=== PATIENT | female | born 1990 | race Caucasian/White ===

== ENCOUNTER 2021-04-10 18:53 | Outpatient (REF) | payer OTHER, SELFPAY | END 2021-04-10 18:54 | disposition home or self-care (01) | LOC: HO.LNP 18:53 | PROVIDERS: Visit Provider Physician Assistant Medical | DX: R30.0 Dysuria (principal) | CPT/HCPCS: 87086 ==

== ENCOUNTER 2021-04-11 13:31 | Outpatient (REF) | payer OTHER, SELFPAY ==
[2021-04-11 16:55] LABS: HCG Quantitative 1210 mIU/mL
== END 2021-04-11 13:32 | disposition home or self-care (01) ==
LOC: HO.HMGCLDS 13:31
PROVIDERS: Visit Provider Physician Assistant Medical
DX: O26.891 Other specified pregnancy related conditions, first trimester (principal); R30.0 Dysuria
CPT/HCPCS: 36415; 84702

== ENCOUNTER 2021-04-27 12:36 | Outpatient (REF) | payer OTHER, SELFPAY | END 2021-04-27 12:37 | disposition home or self-care (01) | LOC: HO.HMGCLDS 12:36 | PROVIDERS: Visit Provider Internal Medicine | DX: N92.0 Excessive and frequent menstruation with regular cycle (principal) | CPT/HCPCS: 36415; 84702 ==

== ENCOUNTER → 2021-05-07 08:45 | Outpatient (BNVA) | payer OTHER, SELFPAY | PROVIDERS: Visit Provider Advanced Practice Midwife | DX: Z32.01 Encounter for pregnancy test, result positive (principal); N92.6 Irregular menstruation, unspecified; R11.0 Nausea; Z3A.08 8 weeks gestation of pregnancy | CPT/HCPCS: 81025 ==

== ENCOUNTER 2021-05-08 14:52 | Outpatient (REF) | payer OTHER, SELFPAY ==
--- NOTE | ~2021-05-08 | US_ITS ---
EXAMINATION: US OBSTETRICAL ULTRASOUND CLINICAL INFORMATION: Irregular menstruation. Check size and dates. COMPARISON: None. LMP: 03/07/2021. Gestational age by maternal dates is 8 weeks 6 days. Estimated date of delivery by maternal dates is 12/12/2021. TECHNIQUE: Transabdominal and transvaginal first trimester OB ultrasound. Transvaginal exam was performed for better visualization of the gestational sac. FINDINGS: There is a single intrauterine gestational sac with visible yolk sac, embryo/fetus, and cardiac activity. There is no significant subchorionic hemorrhage or hematoma. HR: 179 beats per minute. CRL (crown rump length): 2.1 cm (8 weeks 6 days +/- 4 days). SPARKLE (estimated date of delivery): 12/12/2021 +/- 4 days. MATERNAL ADNEXA: The right maternal ovary measures 3.8 x 2.5 x 2 cm. The left maternal ovary measures 2.1 x 1 x 1.5 cm. There is no significant maternal adnexal mass. No maternal pelvic ascites. US/US OB <= 14 weeks fetus IMPRESSION: 1. Single intrauterine gestation with ultrasound gestational age of 8 weeks 6 days +/- 4 days. 2. Estimated date of delivery is 12/12/2021 +/- 4 days. 3. No maternal adnexal mass or pelvic ascites.
== END 2021-05-08 14:53 | disposition home or self-care (01) ==
LOC: HO.US 14:52
PROVIDERS: Visit Provider Advanced Practice Midwife
DX: Z34.91 Encounter for supervision of normal pregnancy, unspecified, first trimester (principal); Z3A.08 8 weeks gestation of pregnancy
CPT/HCPCS: 76801

== ENCOUNTER → 2021-05-30 14:00 | Outpatient (BNVA) | payer OTHER, SELFPAY | PROVIDERS: Visit Provider Advanced Practice Midwife | DX: Z34.01 Encounter for supervision of normal first pregnancy, first trimester (principal); Z3A.12 12 weeks gestation of pregnancy | CPT/HCPCS: 99212 ==

== ENCOUNTER 2021-05-31 08:46 | Outpatient (REF) | payer OTHER, SELFPAY ==
[2021-05-31 11:50] LABS: Hematocrit 36.2 % (37.0-47.0); Hemoglobin 11.5 g/dl (12.0-16.0); Mean Corpuscular HGB Conc 31.8 g/dl (31.0-35.0); Mean Corpuscular Hemoglobin 27.6 pg (27.0-33.0); Mean Platelet Volume 10.7 fL (9.4-12.3); Platelet Count 287 X10*3/uL (160-400); Red Blood Count 4.16 X10*6/uL (4.20-5.50); Red Cell Distribution Width 13.9 % (11.0-16.0); White Blood Count 8.7 X10*3/uL (4.8-10.8)
[2021-05-31 12:15] LABS: Glucose 1 Hour PP 50gm Dose 149 mg/dL (60-140)
[2021-05-31 12:41] LABS: Syphilis Screen Nonreactive (Nonreactive)
[2021-05-31 12:45] LABS: HIV AB/AG Nonreactive (Nonreactive); HIV Num 1 0.07 S/CO (0.00-0.99)
[2021-05-31 12:49] LABS: HBsAGNum1 0.23 S/CO (0.00-0.99); Hepatitis B Surface Antigen Negative (Negative); ~HepC Num1 0.08 S/CO (0.00-0.79); ~Hepatitis C Antibody Nonreactive (Nonreactive)
[2021-05-31 13:17] LABS: Amphetamine Screen Urine Not Detected (Not Detect); Barbiturates, Urine Not Detected (Not Detect); Benzodiazepines Screen Urine Not Detected (Not Detect); Cannabinoid Screen Urine Not Detected (Not Detect); Cocaine Screen Urine Not Detected (Not Detect); Fentanyl, urine Not Detected (Not Detect); Opiate Screen Urine POSITIVE (Not Detect); Phencyclidine Screen Urine Not Detected (Not Detect)
[2021-06-01 13:17] LABS: Rubella IgG Antibody 1.38 Index
[2021-06-01 14:23] LABS: BV Int Neg Control Negative (Negative); BV Int Pos Control Positive (Positive)
[2021-06-01 14:59] LABS: CT PCR NOT DETECTED (Not Detect.); NG PCR NOT DETECTED (Not Detect.)
[2021-06-05 05:47] LABS: HPV mRNA E6/E7 rflx Not Detected (Not Detected)
== END 2021-05-31 08:47 | disposition home or self-care (01) ==
LOC: HO.LAB 08:46
PROVIDERS: Visit Provider Advanced Practice Midwife
DX: O99.341 Other mental disorders complicating pregnancy, first trimester (principal); O26.891 Other specified pregnancy related conditions, first trimester; O99.810 Abnormal glucose complicating pregnancy; F41.8 Other specified anxiety disorders; F32.A Depression, unspecified; K21.9 Gastro-esophageal reflux disease without esophagitis; Z11.3 Encounter for screening for infections with a predominantly sexual mode of transmission; Z3A.12 12 weeks gestation of pregnancy
CPT/HCPCS: 80307; 85027; 86762; 86780; 86787; 86803; 86850; 86900; 86901; 87086; 87340; 87389; 87480; 87491; 87510; 87591; 87624; 87660; 88142; 99212

== ENCOUNTER 2021-06-07 09:27 | Outpatient (REF) | payer OTHER, SELFPAY ==
--- NOTE | ~2021-06-07 | US_ITS ---
EXAMINATION: OBSTETRICAL ULTRASOUND, FIRST TRIMESTER HISTORY: 30-year-old at the 13.1 weeks of gestation NT screening Mild hypertension Father of the baby with the neurofibromatosis COMPARISON: 05/08/2021 TECHNIQUE: Real time transabdominal imaging with color and M-mode Doppler. FINDINGS: A single, live IUP CRL of 69.1 mm c/w 13.1wks is noted. Heart Rate: 153 beats per minute. Normal yolk sac seen. NT was 1.63.mm. NB Present The embryo appears sonographically wnl for this GA. Both maternal ovaries are seen and appear normal. GESTATIONAL AGE: 1. Established GA: 13.1 wks 2. GA from [facility]: 13.1 wks ESTIMATED DATE OF DELIVERY: 1. Established SPARKLE: 12/12/2021 2. SPARKLE from [facility]: 12/12/2021 US/US OB 1T nuc measure IMPRESSION: 1. A single live IUP 2. Size equals dates 3. Normal nuchal translucency for this age. MFM Consultation: I reviewed the ultrasound findings along with significance of NT measurement. The NT of less than 3mm is generally reassuring. However, the sensitivity for T21 detection is only 60%. I reviewed the availability of serum aneuploidy screening which includes cell-free DNA and placental protein based tests. I discussed the sensitivity, false-positive rate, and other limitations associated with each test. I also reviewed the availability of invasive diagnostic tests that are associated small but definite risk of miscarriage. We also reviewed the differences between screening tests and diagnostic tests. After our discussion, she opted for the First trimester screening that is based on cell-free DNA or non-invasive testing (NIPT). She reports having mild HTN but is not on antihypertensives. She is on the baby aspirin q.d. Neurofibromatosis is not a normal dominant trait. There is approximately 50% chance of transmission. If the mutation that her partner carriers is known, diagnosis may be possible. However this will require either chorionic villous sampling or amniocentesis. The result of the NIPT will be faxed to your office in approximately 7 days. A follow up at 18 weeks for survey has been scheduled. Thank you very much for this referral. Total time 30 minutes. The time spent was devoted to counseling the patient about the disease and diagnosis, coordinating care including reviewing her records, pertinent lab data and studies, as well as discussing diagnostic evaluation and workup, plan therapeutic interventions and future disposition of care. This includes any additional research needed to obtain further information in formulating the plan of care of this patient. This note was generated with a voice recognition program. Please excuse any errors which may have been overlooked during my review of this note. Sometimes these errors may affect the content or meaning of a given sentence.
== END 2021-06-07 09:28 | disposition home or self-care (01) ==
LOC: HO.US 09:27
PROVIDERS: Visit Provider Advanced Practice Midwife
DX: Z34.91 Encounter for supervision of normal pregnancy, unspecified, first trimester (principal); Z3A.13 13 weeks gestation of pregnancy
CPT/HCPCS: 76813

== ENCOUNTER 2021-06-28 08:46 | Outpatient (REF) | payer OTHER, SELFPAY ==
[2021-06-29 13:06] LABS: BV Int Neg Control Negative (Negative); BV Int Pos Control Positive (Positive)
== END 2021-06-28 08:47 | disposition home or self-care (01) ==
LOC: HO.LAB 08:46
PROVIDERS: Visit Provider Advanced Practice Midwife
DX: O99.340 Other mental disorders complicating pregnancy, unspecified trimester (principal); F32.A Depression, unspecified; Z3A.16 16 weeks gestation of pregnancy
CPT/HCPCS: 87480; 87510; 87660; 99212

== ENCOUNTER 2021-07-03 08:43 | Outpatient (REF) | payer OTHER, SELFPAY ==
[2021-07-03 10:53] LABS: Amphetamine Screen Urine Not Detected (Not Detect); Barbiturates, Urine Not Detected (Not Detect); Benzodiazepines Screen Urine Not Detected (Not Detect); Cannabinoid Screen Urine Not Detected (Not Detect); Cocaine Screen Urine Not Detected (Not Detect); Fentanyl, urine Not Detected (Not Detect); Opiate Screen Urine Not Detected (Not Detect); Phencyclidine Screen Urine Not Detected (Not Detect)
== END 2021-07-03 08:44 | disposition home or self-care (01) ==
LOC: HO.LAB 08:43
PROVIDERS: Visit Provider Advanced Practice Midwife
DX: Z34.90 Encounter for supervision of normal pregnancy, unspecified, unspecified trimester (principal)
CPT/HCPCS: 80307

== ENCOUNTER → 2021-07-05 08:56 | Outpatient (BNVA) | payer OTHER, SELFPAY | PROVIDERS: Visit Provider Advanced Practice Midwife | DX: Z13.89 Encounter for screening for other disorder (principal) ==

== ENCOUNTER → 2021-07-16 15:04 | Outpatient (BNVA) | payer OTHER, SELFPAY | PROVIDERS: Visit Provider Obstetrics & Gynecology | DX: Z34.02 Encounter for supervision of normal first pregnancy, second trimester (principal); Z3A.18 18 weeks gestation of pregnancy | CPT/HCPCS: 99212 ==

== ENCOUNTER 2021-07-19 09:25 | Outpatient (REF) | payer OTHER, SELFPAY ==
--- NOTE | ~2021-07-19 | US_ITS ---
EXAMINATION: US OBSTETRICAL CLINICAL INFORMATION: A 30-year-old at 19.1 weeks of gestation Screening for the suspected anomaly COMPARISON: 06/07/2021 TECHNIQUE: Real-time transabdominal ultrasound was performed using C1-5 megahertz transducer. FINDINGS: A single, active, fetus is seen in vertex presentation. The placenta is fundal without previa, and the amniotic fluid volume is wnl. MEASUREMENTS: 1. Biparietal Diameter: 4.4 cm; 19.2 wks 2. Occipital Frontal Diameter: 5.9 cm 3. Head Circumference: 16.5 cm; 19.2 wks 4. Abdominal Circumference: 14.9 cm; 20.2 wks 5. Femur Length: 3.0 cm; 19.2 wks 6. Humerus Length: 2.9 cm; 19.2 wks 7. Tibia Length: 2.6 cm; 19.2 wks 8. Ulna Length: 2.5 cm; 19.1 wks 9. Lateral ventricle: 0.6 cm 10. Cerebellum: 1.99 cm; 20.2 wks 11. Cisterna Magna: 0.37 cm 12. Nuchal Fold: 3.32 mm 13. Heart Rate: 146 beats per minute Rt ovary: normal Lt ovary: normal Cervical length 3.2 cm on T/A. GESTATIONAL AGE: 1. Established GA: 19.1 wks 2. GA from [facility]: 19.4 wks ESTIMATED DATE OF DELIVERY: 1. Established SPARKLE: 12/12/2021 2. SPARKLE from [facility]: 12/09/2021 ANATOMY: The visualized anatomy includes but not limited to: 1. Cranium: Normal 2. Intracranial anatomy: cavum septum pellucidi, lateral ventricles, choroid plexus, cerebellum, posterior fossa, third and fourth ventricles. 3. face: orbits, lip/palate, profile, nasal bone 4. Heart: four-chamber view of the heart, ventricular septum, foramen ovale, pulmonary vein, left and right outflow tracts, three-vessel view, 3 vessel trachea view, aortic and ductal arches, situs.. 5. Diaphragm: Normal 6. Abdominal wall: Normal 7. Cord Insertion: Normal 8. Spine: Cervical, thoracic, lumbar, sacral. 9. Stomach: Normal size and shape 10. Right Kidney: Normal 11. Left Kidney: Normal 12. 3 vessel cord: Normal 13. Upper extremity: Open hands, fifth digit. 14. Lower extremity: Tibia, fibula, bilateral feet. 15. Bladder: Normal 16. Genitalia: Female, patient aware US/US OB /maternal detail IMPRESSION: 1. Single, living, intrauterine with appropriate biometry. 2. Normal survey DISCUSSION: I reviewed today's ultrasound findings. We discussed the limitations of ultrasound in diagnosing aneuploidy and other congenital abnormalities. I reviewed the differences between screening test and diagnostic test. Amniocentesis was discussed and declined. She was informed that the baseline incidence of congenital abnormalities is approximately 3-5%. Not all these conditions are diagnosable in utero. RECOMMENDATIONS: 1. f/u PRN Thank you for allowing me to participate in her care. Total time 20 minutes. The time spent was devoted to counseling the patient about the disease and diagnosis, coordinating care including reviewing her records, pertinent lab data and studies, as well as discussing diagnostic evaluation and workup, plan therapeutic interventions and future disposition of care. This includes any additional research needed to obtain further information in formulating the plan of care of this patient. This note was generated with a voice recognition program. Please excuse any errors which may have been overlooked during my review of this note. Sometimes these errors may affect the content or meaning of a given sentence.
== END 2021-07-19 09:26 | disposition home or self-care (01) ==
LOC: HO.US 09:25
PROVIDERS: Visit Provider Advanced Practice Midwife
DX: Z34.92 Encounter for supervision of normal pregnancy, unspecified, second trimester (principal)
CPT/HCPCS: 76811

== ENCOUNTER → 2021-07-30 15:27 | Outpatient (BNVA) | payer OTHER, SELFPAY | PROVIDERS: Visit Provider Advanced Practice Midwife | DX: O99.810 Abnormal glucose complicating pregnancy (principal); O99.342 Other mental disorders complicating pregnancy, second trimester; F41.8 Other specified anxiety disorders; Z3A.20 20 weeks gestation of pregnancy | CPT/HCPCS: 81003; 99212 ==

== ENCOUNTER → 2021-08-02 13:53 | Outpatient (BNVA) | payer OTHER, SELFPAY | PROVIDERS: Visit Provider Advanced Practice Midwife | DX: O36.8320 Maternal care for abnormalities of the fetal heart rate or rhythm, second trimester, not applicable or unspecified (principal); O99.810 Abnormal glucose complicating pregnancy; O99.342 Other mental disorders complicating pregnancy, second trimester; F32.A Depression, unspecified; O23.512 Infections of cervix in pregnancy, second trimester; Z3A.21 21 weeks gestation of pregnancy | CPT/HCPCS: 99212 ==

== ENCOUNTER 2023-12-11 09:26 | Outpatient (AMB) | payer OTHER, SELFPAY ==
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
[2023-12-11 09:33] VITALS: BP 140/80; PULSE 93; O2SAT 98; BMI 36.1
--- OUTSIDE RECORDS SUMMARY | 2023-12-13 00:17 | XMS_ITS | Continuity of Care Document ---
Author Organization [facility] Address [address], [address] [place] [address]- Care Team Providers Care Network Cabler Name Role Phone Not on Staff, PCP Primary Care Physician Unavail able [facility] Date[facility]s): 09/19/21 - 10/19/21 [facility] [address] [place], [place] [address] Attending Physician: Franklyn Chavez Admitting Physician: Admtr, Franklyn Referring Physician: Admtr, Ar8 Allergies, Adverse Reactions, Alerts Substance Reaction Severity Status shellfish Hives Active Immunizations Given and Recorded Vaccine Date Status Refusal Reason influenza virus vaccine, inactivated 06/29/18 Jam rded Human Papillomavirus Vaccine 05/09/11 Recorded Human Papillomavirus Vaccine 10/12/06 Recorded tetanus/diphtheria/pertussis, acel(Tdap) 04/30/10 Recorded Meningococcal Conjugate Vaccine 10/12/06 Recorded tetanus-diphtheria toxoids (Td) 11/21/04 Recorded Measles/Mumps/Rubella Virus Vaccine 09/16/95 Recor ded Measles/Mumps/Rubella Virus Vaccine 02/19/92 Recor ded Medications aspirin 81 mg oral tablet, chewable 162 mg, 2, tablet, Chew, Daily, continue until 2 weeks , # 60 tablet, Refills 8, Tot. Refills 8, Maintenance, 08/21/21 17:24:00 EDT, Route to Pharmacy Electronically, [facility] #[id number], Partial fill upon patient request if the pres... Start Date: 08/21/21 Stop Date: 05/18/22 Status: Ordered famotidine 20 mg oral tablet 20 mg, 1, tablet, By Mouth, Daily at bedtime, # 30 tablet, Refills 4, Tot. Refills 4, Maintenance, 08/21/21 17:24:00 EDT, Route to Pharmacy Electronically, [facility] #[id number], Partial fill upon patient request if the prescription is for a sammi... Start Date: 08/21/21 Stop Date: 01/18/22 Status: Ordered ferrous sulfate 325 mg oral enteric coated tablet 325 mg, 1, tablet, By Mouth, Daily, # 30 tablet, Refills 3, Tot. Refills 3, Maintenance, 10/02/21 18:32:00 EDT, Route to Pharmacy Electronically, [facility] #[id number], Partial fill upon patient request if the prescription is for a schedule II o... Start Date: 10/02/21 Status: Ordered Multivitamins with FA 0.8 mg oral tablet 1 tablet, By Mouth, Daily, # 30 each, 6 Refills, Maintenance, 08/06/21 13:47:00 EDT, Tablet, Partial fill upon patient request if the prescription is for a schedule II opioid drug. Start Date: 08/06/21 Stop Date: 09/05/21 Status: Ordered Problem List Condition Effective Dates Status Health Status Inform ant BMI 33.0-33.9,adult(Confirmed) Active COVID-19 virus infection(Confirmed) 04/2021 Active Cervicitis(Confirmed) Active Anxiety and depression(Confirmed) Active Obese class II(Confirmed) Active Social History Social History Type Response Smoking Status Never (less than 100 in lifetime) entered on: 08/06/21 Sex
--- OUTSIDE RECORDS SUMMARY | 2023-12-13 00:17 | XMS_ITS | Continuity of Care Document ---
[facility] Organization [facility] Address [address] [address]- Care Team Providers Care Sales And Merchandising Representative Name Role Phone Spenser DAY, Julian Primary Care Physician [facility]): 12[facility]11/21 - 01/10/22 [facility] [address] [place] [id number] Allergies, Adverse Reactions, Alerts Substance Reaction Severity Status shellfish Hives Active Immunizations Given and Recorded Vaccine Date Status Refusal Reason tetanus/diphtheria/pertussis, acel(Tdap) 10/22/21 Given tetanus/diphtheria/pertussis, acel(Tdap) 04/30/10 Recorded influenza virus vaccine, inactivated 06/29/18 Jam rded Human Papillomavirus Vaccine 05/09/11 Recorded Human Papillomavirus Vaccine 10/12/06 Recorded Meningococcal Conjugate Vaccine 10/12/06 Recorded tetanus-diphtheria toxoids (Td) 11/21/04 Recorded Measles/Mumps/Rubella Virus Vaccine 09/16/95 Recor ded Measles/Mumps/Rubella Virus Vaccine 02/19/92 Recor ded Medications Geena 30 mg oral tablet 1 tablet = 30 mg, By Mouth, Once, # 1 tablet, 1 Refills, Soft Stop, 12/27/21 15:15:00 EDT, Tablet, [facility] #[id number], Partial fill upon patient request if the prescription is for a scheduleII opioid drug., 152, cm, 12/27/21 13:37:00 EDT, He... Start Date: 12/27/21 Status: Ordered ferrous sulfate 325 mg oral enteric coated tablet 325 mg, 1, tablet, By Mouth, Daily, # 30 tablet, Refills 3, Tot. Refills 3, Maintenance, 10/02/21 18:32:00 EDT, Route to Pharmacy Electronically, [facility] #[id number], Partial fill upon patient request if the prescription is for a schedule II o... Start Date: 10/02/21 Status: Ordered Multivitamins with FA 0.8 mg oral tablet 1 tablet = 0.8 mg, By Mouth, Daily, # 30 tablet, 5 Refills, Maintenance, 11/05/21 18:50:00 EDT, Tablet, [facility] #[id number], Partial fill upon patient request if the prescription is for a schedule II opioid drug., 1 tablet By Mouth Daily, 152,... Start Date: 11/05/21 Status: Ordered Problem List Condition Effective Dates Status Health Status Inform ant BMI 33.0-33.9,adult(Confirmed) Active COVID-19 virus infection(Confirmed) 04/2021 Active Cervicitis(Confirmed) Active Anxiety and depression(Confirmed) Active Obese class I(Confirmed) Active Social History Social History Type Response Smoking Status Never (less than 100 in lifetime) entered on: 08/06/21 Sex Care Team Personnel Name: Julian Dueñas MD Address: [address] [place] [id number]
--- OUTSIDE RECORDS SUMMARY | 2023-12-13 00:17 | XMS_ITS | Continuity of Care Document ---
Author [facility] Address [address] [address]- Care Team Providers Care Sewing Machine Bobbin Winder Name Role Phone Not on Staff, PCP Primary Care Physician Unavail able [facility] Date[facility]s): 01/14/22 - 02/13/22 [facility] [address] [address] Attending Physician: Franklyn Chavez Admitting Physician: AdmFranklyn newell Referring Physician: AdmtrFranklyn Allergies, Adverse Reactions, Alerts Substance Reaction Severity [...] 1 Refills, Soft Stop, 12/27/21 15:15:00 EDT, [place], [facility] #[id number], Partial fill upon patient request if the prescription is for a scheduleII opioid drug., 152, cm, 12/27/21 13:37:00 EDT, [facility] Start Date: 12/27/21 Status: Ordered ferrous sulfate 325 mg oral enteric coated tablet 325 mg, 1, tablet, By Mouth, Daily, # 30 tablet, Refills 3, Tot. Refills 3, Maintenance, 10/02/21 18:32:00 EDT, Route to Pharmacy Electronically, [facility] #[id number], Partial fill upon patient request if the prescription is for a schedule II o... Start Date: 10/02/21 Status: Ordered Multivitamins with FA 0.8 mg oral tablet 1 tablet = 0.8 mg, By Mouth, Daily, # 30 tablet, 5 Refills, Maintenance, 11/05/21 18:50:00 EDT, Tablet, [facility] #[id number], Partial fill upon patient request if the prescription is for a schedule II opioid drug., 1 tablet By Mouth Daily, 152,... Start Date: 11/05/21 Status: Ordered Problem List Condition Confirmation Course Effective Dates Status Health St atus Informant BMI 33.0-33.9,adult Confirmed Active COVID-19 virus infection Confirmed 04/2021 Active Cervicitis Confirmed Active Anxiety and depression Confirmed Active Obese class I Confirmed Active Social History Social History Type Response Smoking Status Never (less than 100 in lifetime) entered on: 08/06/21 Sex Patient Care team information Personnel Name: Not on Staff, PCP
--- OUTSIDE RECORDS SUMMARY | 2023-12-13 00:17 | XMS_ITS | Continuity of Care Document ---
Author Organization [facility] Address [address] [address]- Care Team Providers Care External Relations Manager Name Role Phone Luanne Mi NP Primary Care Physician [phone] [place] [facility] [place] - 08/16/22 [facility] [address] [place] [id number] Allergies, Adverse Reactions, Alerts Substance Reaction [...] Measles/Mumps/Rubella Virus Vaccine 02/19/92 Recor ded Medications adapalene 0.3% topical gel 1 application, Topically, Daily at bedtime, # 45 Gm, 0 Refills, Maintenance, 06/04/22 10:30:00 EST,G[facility], Partial fill upon patient request if the prescription is for a schedule II opioid drug. Start Date: 06/04/22 Status: Ordered clindamycin 1% topical gel See Instructions, Topically daily in am, # 30 Gm, 1 Refills, Maintenance, 06/16/22 16:39:00 EST, [id number], Partial fill upon patient request if the prescription is for a schedule II opioid drug., Topically daily in am, 152, cm, 01/14/22 13:3... Start Date: 06/16/22 Status: Ordered clindamycin 1% topical gel 1 application, Topically, Daily in AM, # 30 Gm, 0 Refills, Maintenance, 06/04/22 10:30:00 EST, Gel,Partial fill upon patient request if the prescription is for a schedule II opioid drug. Start Date: 06/04/22 Status: Ordered Geena 30 mg oral tablet 1 tablet = 30 mg, By Mouth, Once, # 1 tablet, 1 Refills, Soft Stop, 12/27/21 15:15:00 EDT, Tablet, [facility] #[id number], Partial fill upon patient request if the prescription is for a scheduleII opioid drug., 152, cm, 12/27/21 13:37:00 EDT, He... Start Date: 12/27/21 Status: Ordered ferrous sulfate 325 mg oral enteric coated tablet 325 mg, 1, tablet, By Mouth, Daily, # 30 tablet, Refills 3, Tot. Refills 3, Maintenance, 10/02/21 18:32:00 EDT, Route to Pharmacy Electronically, [facility] #[id number], Partial fill upon patient request if the prescription is for a schedule II o... Start Date: 10/02/21 Status: Ordered Multivitamins with FA 0.8 mg oral tablet 1 tablet = 0.8 mg, By Mouth, Daily, # 30 tablet, 5 Refills, Maintenance, 11/05/21 18:50:00 EDT, Tablet, [facility] #[id number], Partial fill upon patient request if the [...] on: 08/06/21 Sex Patient Care team information Care Team Personnel Name: Luanne Mi NP Position: S PCO Associate Professional Member Role: PCP Address: Address: [address] [address]- Care Team Related Persons Name: ERICA MCGINNIS Address: [address] [place] [address] Name: MYLES MCGINNIS Address: [employer] Address: [place] [address] [place] [address]
--- OUTSIDE RECORDS SUMMARY | 2023-12-13 00:17 | XMS_ITS | Continuity of Care Document ---
Author Organization [facility] Address Unknown Care Team Providers Care Incident Response Manager Name Role Phone Not on Staff, PCP Primary Care Physician Unavail able [facility] Allergies, Adverse Reactions, Alerts Substance Reaction Severity [...] 08/21/21 17:24:00 EDT, Route to Pharmacy Electronically, [facility][id number], Partial fill upon patient request if the pres... Start Date: 08/21/21 Stop Date: 05/18/22 Status: Ordered famotidine 20 mg oral tablet 20 mg, 1, tablet, By Mouth, Daily at bedtime, # 30 tablet, Refills 4, Tot. Refills 4, Maintenance, 08/21/21 17:24:00 EDT, Route to Pharmacy Electronically, [facility] #[id number], Partial fill upon patient request if the prescription is for a sammi... Start Date: 08/21/21 Stop Date: 01/18/22 Status: Ordered Multivitamins with FA 0.8 mg [...] 33.0-33.9,adult(Confirmed) Active COVID-19 virus infection(Confirmed) 04/2021 Active Gestational diabetes mellitus(Confirmed) Active Cervicitis(Confirmed) Active Anxiety and depression(Confirmed) Active Obese class I(Confirmed) Active Social History Social History Type Response Smoking Status Never (less than 100 in lifetime) entered on: 08/06/21 Sex
--- OUTSIDE RECORDS SUMMARY | 2023-12-13 00:18 | XMS_ITS | Continuity of Care Document ---
Author Organization [facility] Address [address] [address]- Care Team Providers Care Lumber Estimator Name Role Phone Luanne Mi NP Primary Care Physician [place] [facility] [place]s): 07/17/22 - 08/16/22 [facility] [address] [place] [id number] Allergies, Adverse Reactions, Alerts Substance Reaction Severity [...] 1 Refills, Maintenance, 06/16/22 16:39:00 EST, [id number], Partial fill upon patient request if the [...] Refills, Soft Stop, 12/27/21 15:15:00 EDT, Tablet, [facility] #[id number], Partial fill upon patient request if the prescription is for a scheduleII opioid drug., 152, cm, 12/27/21 13:37:00 EDT, He... Start Date: 12/27/21 Status: Ordered ferrous sulfate 325 mg oral enteric coated tablet 325 mg, 1, tablet, By Mouth, Daily, # 30 tablet, Refills 3, Tot. Refills 3, Maintenance, 10/02/21 18:32:00 EDT, Route to Pharmacy Electronically, [facility][id number], Partial fill upon patient request if the prescription is for a schedule II o... Start Date: 10/02/21 Status: Ordered Multivitamins with FA 0.8 mg oral tablet 1 tablet = 0.8 mg, By Mouth, Daily, # 30 tablet, 5 Refills, Maintenance, 11/05/21 18:50:00 EDT, Tablet, [facility][id number], Partial fill upon patient request if the [...] Associate Professional Member Role: PCP Address: Address: [address], [place] [address]- Care Team Related Persons Name: ERICA MCGINNIS Address: [address] [place] [address] Name: MYLES MCGINNIS Address: [employer] Address: [place] [address] [place] [address]
--- OUTSIDE RECORDS SUMMARY | 2023-12-13 00:18 | XMS_ITS | Continuity of Care Document ---
Author Organization [facility] Address [address] [place] [address]- Care Team Providers Care Before School Babysitter Name Role Phone Hiwot ESPINO, Luanne Primary Care Physician [phone] [facility]): 10/13/22 - 11/12/22 [facility] [address] [place], [place] [address] Allergies, Adverse Reactions, Alerts Substance [...] Topically daily in am, # 30 Gm, 0 Refills, Maintenance, 10/13/22 17:14:00 EDT, [id number], Partial fill upon patient request if the prescription is for a schedule II opioid drug., Topically daily in am, 152.9, cm, 08/01/22 14... Start Date: 10/13/22 Status: Ordered clindamycin 1% topical gel 1 [...] Refills, Soft Stop, 12/27/21 15:15:00 EDT, Tablet, [facility] #[id number], Partial fill upon patient request if the prescription is for a scheduleII opioid drug., 152, cm, 12/27/21 13:37:00 EDT, He... Start Date: 12/27/21 Status: Ordered ferrous sulfate 325 mg oral enteric coated tablet 325 mg, 1, tablet, By Mouth, Daily, # 30 tablet, Refills 3, Tot. Refills 3, Maintenance, 10/02/21 18:32:00 EDT, Route to Pharmacy Electronically, [facility] #[id number], Partial fill upon patient request if the prescription is for a schedule II o... Start Date: 10/02/21 Status: Ordered Multivitamins with FA 0.8 mg oral tablet 1 tablet = 0.8 mg, By Mouth, Daily, # 30 tablet, 5 Refills, Maintenance, 11/05/21 18:50:00 EDT, Tablet, [facility] #[id number], Partial fill upon patient request if the [...] Associate Professional Member Role: PCP Address: Address: [address] Care Team Related Persons Name: ERICA MCGINNIS Address: home [address] [place] [address] Name: MYLES MCGINNIS Address: [employer] Address: home [address] [place] [address]
--- OUTSIDE RECORDS SUMMARY | 2023-12-13 00:18 | XMS_ITS | Continuity of Care Document ---
[facility] Address [address] [address]- Care Team Providers Care Desk Editor Name Role Phone Spenser DAY, Julian Primary Care Physician [facility] Date(s): 12/03/21 - 01/02/22 [facility] [address] [place] [id number] Allergies, Adverse Reactions, Alerts Substance [...] Refills, Soft Stop, 12/27/21 15:15:00 EDT, Tablet, [facility] #[id number], Partial fill upon patient request if the prescription is for a scheduleII opioid drug., 152, cm, 12/27/21 13:37:00 EDT, He... Start Date: 12/27/21 Status: Ordered ferrous sulfate 325 mg oral enteric coated tablet 325 mg, 1, tablet, By Mouth, Daily, # 30 tablet, Refills 3, Tot. Refills 3, Maintenance, 10/02/21 18:32:00 EDT, Route to Pharmacy Electronically, [facility] #[id number], Partial fill upon patient request if the prescription is for a schedule II o... Start Date: 10/02/21 Status: Ordered Multivitamins with FA 0.8 mg oral tablet 1 tablet = 0.8 mg, By Mouth, Daily, # 30 tablet, 5 Refills, Maintenance, 11/05/21 18:50:00 EDT, Tablet, [facility] #[id number], Partial fill upon patient request if the [...] Team Personnel Name: Julian Dueñas MD Address: [address] [place] [id number]
--- OUTSIDE RECORDS SUMMARY | 2023-12-13 00:18 | XMS_ITS | Continuity of Care Document ---
Author Organization [facility] Address [address] [place] [address]- Care Team Providers Care Cylinder Press Feeder Name Role Phone Hiwot ESPINO, Luanne Primary Care Physician Encounter [facility] Date(s): 06/12/22 - 07/12/22 [facility] [address] [place], [place] [address] Allergies, Adverse Reactions, Alerts Substance [...] 1 Refills, Maintenance, 06/16/22 16:39:00 EST, [id number], Partial fill upon patient request if the [...] Refills, Soft Stop, 12/27/21 15:15:00 EDT, Tablet, [facility] #[id number], Partial fill upon patient request if the prescription is for a scheduleII opioid drug., 152, cm, 12/27/21 13:37:00 EDT, He... Start Date: 12/27/21 Status: Ordered ferrous sulfate 325 mg oral enteric coated tablet 325 mg, 1, tablet, By Mouth, Daily, # 30 tablet, Refills 3, Tot. Refills 3, Maintenance, 10/02/21 18:32:00 EDT, Route to Pharmacy Electronically, [facility] #[id number], Partial fill upon patient request if the prescription is for a schedule II o... Start Date: 10/02/21 Status: Ordered Multivitamins with FA 0.8 mg oral tablet 1 tablet = 0.8 mg, By Mouth, Daily, # 30 tablet, 5 Refills, Maintenance, 11/05/21 18:50:00 EDT, Tablet, [facility] #[id number], Partial fill upon patient request if the [...] Associate Professional Member Role: PCP Address: Address: [address] [place] [address] Care Team Related Persons Name: ERICA MCGINNIS Address: home [address] [place] [address] Name: MYLES MCGINNIS Address: [employer] Address: [address]
--- OUTSIDE RECORDS SUMMARY | 2023-12-13 00:18 | XMS_ITS | Continuity of Care Document ---
Author Organization [facility] Address [address] [address]- Care Team Providers Care Field Hockey And Lacrosse Coach Name Role Phone Luanne Mi NP Primary Care Physician Encounter [facility] Date(s): 07/17/22 - 08/16/22 [facility] [address] [place] [address] Allergies, Adverse Reactions, Alerts Substance Reaction [...] 1 Refills, Maintenance, 06/16/22 16:39:00 EST, [id number], Partial fill upon patient request if the [...] Refills, Soft Stop, 12/27/21 15:15:00 EDT, Tablet, [facility] #[id number], Partial fill upon patient request if the prescription is for a scheduleII opioid drug., 152, cm, 12/27/21 13:37:00 EDT, He... Start Date: 12/27/21 Status: Ordered ferrous sulfate 325 mg oral enteric coated tablet 325 mg, 1, tablet, By Mouth, Daily, # 30 tablet, Refills 3, Tot. Refills 3, Maintenance, 10/02/21 18:32:00 EDT, Route to Pharmacy Electronically, [facility] #[id number], Partial fill upon patient request if the prescription is for a schedule II o... Start Date: 10/02/21 Status: Ordered Multivitamins with FA 0.8 mg oral tablet 1 tablet = 0.8 mg, By Mouth, Daily, # 30 tablet, 5 Refills, Maintenance, 11/05/21 18:50:00 EDT, Tablet, [facility] #[id number], Partial fill upon patient request if the [...] Associate Professional Member Role: PCP Address: Address: [address] [address]- Care Team Related Persons Name: ERICA MCGINNIS Address: [address] [place] [address] Name: MYLES MCGINNIS Address: [employer] Address: [place] [address] [place] [address]
--- OUTSIDE RECORDS SUMMARY | 2023-12-13 00:18 | XMS_ITS | Continuity of Care Document ---
Author Organization [facility] Address [address] [place] [address]- Care Team Providers Care Manufacturing Cost Estimator Name Role Phone Hiwot ESPINO, Luanne Primary Care Physician [phone] Encounter [facility] Date(s): 11/07/22 - 11/14/[facility] [address] [place] [place] [address] Encounter Diagnosis Chest pain(Discharge Diagnosis) - 11/07/22 Hyperlipidemia(Discharge Diagnosis) - 11/07/22 Fatigue(Discharge Diagnosis) - 11/07/22 Attending Physician: Luanne Mi NP Allergies, Adverse Reactions, Alerts Substance Reaction Severity [...] 0 Refills, Maintenance, 10/13/22 17:14:00 EDT, [id number], Partial fill upon patient request if the [...] Refills, Soft Stop, 12/27/21 15:15:00 EDT, Tablet, [facility][id number], Partial fill upon patient request if the prescription is for a scheduleII opioid drug., 152, cm, 12/27/21 13:37:00 EDT, He... Start Date: 12/27/21 Status: Ordered ferrous sulfate 325 mg oral enteric coated tablet 325 mg, 1, tablet, By Mouth, Daily, # 30 tablet, Refills 3, Tot. Refills 3, Maintenance, 10/02/21 18:32:00 EDT, Route to Pharmacy Electronically, [facility] #[id number], Partial fill upon patient request if the prescription is for a schedule II o... Start Date: 10/02/21 Status: Ordered Multivitamins with FA 0.8 mg oral tablet 1 tablet = 0.8 mg, By Mouth, Daily, # 30 tablet, 5 Refills, Maintenance, 11/05/21 18:50:00 EDT, Tablet, [facility] #[id number], Partial fill upon patient request if the prescription is for a schedule II opioid drug., 1 tablet By Mouth Daily, 152,... Start Date: 11/05/21 Status: Ordered Problem List Condition Confirmation Course Effective Dates Status Health St atus Informant BMI 33.0-33.9,adult Confirmed Active COVID-19 virus infection Confirmed 04/2021 Active Cervicitis Confirmed Active Anxiety and depression Confirmed Active Obese class I Confirmed Active Diagnosis Diagnosis Type Effective Dates Health Status Cl inical Service Informant Chest pain Discharge Diagnosis 11/07/22 Hyperlipidemia Discharge Diagnosis 11/07/22 Fatigue Discharge Diagnosis 11/07/22 Vital Signs Most recent to oldest [Reference Range]: 1 Height 152.9 cm (11/07/22 10:13 AM) Weight 81.3 kg (11/07/22 10:13 AM) Oxygen Saturation [94-100 %] 96 % (11/07/22 10:13 AM) Pulse Rate [55-90 bpm] 90 bpm (11/07/22 10:13 AM) Body Mass Index [18.5-24.99 kg/m2] 34.78 kg/m2 *>HHI* (11/07/22 10:13 AM) Blood Pressure [90-138/55-84 mm Hg] 134/ 91mm Hg (11/07/22 10:13 AM) Respiratory Rate [16-30 br/min] 18 br/mi n (11/07/22 10:13 AM) Temperature [96.8-100.4 DegF] 98 DegF (11/07/22 10:13 AM) Mode of Delivery (Oxygen) Room air (11/07/22 10:13 AM) Blood pressure sites Arm, left (11/07/22 10:13 AM) Temperature Route Oral (11/07/22 10:13 AM) Dry Weight 81.3 kg (11/07/22 10:13 AM) Weight Obtained Via Standing scale (11/07/22 10:13 AM) Dry Weight Obtained Via Standing scale (11/07/22 10:13 AM) Social History Social History Type Response Smoking Status Never (less than 100 in lifetime) entered on: 08/06/21 Sex EKG study * Event Display: ECG 12-Lead Authored Date: Please click on pdf link to open report * Event Display: ECG 12-Lead Authored Date: Ventricular Rate: 89 BPM Atrial Rate: 89 BPM P-R Interval: 150 ms QRS Duration: 82 ms Q-T Interval: 342 ms QTC Calculation(Bazett): 416 ms P [place]: 50 degrees R [place]: 31 degrees T [place]: 26 degrees Normal sinus rhythm Normal ECG No previous ECGs available Confirmed by SYDNI HENDERSON ([id number]) on 11/09/2022 1:14:25 PM Sims: SYDNI HENDERSON Note * Leslie Reynoso: PERFORM, SIGN, VERIFY Event Display: Patient Education/Instruction Authored Date: [id number] [facility] *No Edge Adult Ped Clinical Summary Name WALESKA MACE Age 31 Years 1990 PCP Luanne Mi NP PCP Visit Date 11/07/2022 10:02:00 Additional Instructions: Scheduled Appointments?? Future Appointments ?No Future Appointments Scheduled Follow-Up Instructions ?? Diagnosis Chest pain, unspecified Medications: Please continue your medications until treatment is completed or stopped by your provider. Discuss any questions related to medications with your provider. Medications to Continue with No Changes These medications were not printed or sent to your pharmacy Adapalene Topical (adapalene 0.3% topical gel) 1 castro Topically Daily at Bedtime. Next Dose: Clindamycin Topical (clindamycin 1% topical gel) Topically daily in am. Refills: 0. Next Dose: Clindamycin Topical (clindamycin 1% topical gel) 1 castro Topically Daily in the morning. Next Dose: Ferrous Sulfate (ferrous sulfate 325 mg oral enteric coated tablet) 1 tab(s) Oral Daily. Refills: 3. Next Dose: Multivitamin, ( Multivitamins with FA 0.8 mg oral tablet) 1 tab(s) Oral Daily. Refills: 5. Next Dose: ulipristal (Geena 30 mg oral tablet) 1 tab(s) Oral once. Refills: 1. Next Dose: Allergy Info:?? shellfish Medications Given This Visit Future Orders ?CBC? Order Date:11/07/22?- Complete on or after?11/07/22 ?Lipid Panel? Order Date:11/07/22?- Complete on or after?11/07/22 ?Basic Metabolic Panel? Order Date:11/07/22?- Complete on or after?11/07/22 ?TSH? Order Date:11/07/22?- Complete on or after?11/07/22 ?AST? Order Date:11/07/22?- Complete on or after?11/07/22 ?ALT? Order Date:11/07/22?- Complete on or after?11/07/22 Vital Signs Height 152.9 cm Weight 81.3 kg BMI 34.78 kg/m2 Blood Pressure 134 mm Hg/91 mm Hg Temperature 98 DegF Pulse Rate 90 bpm Respiratory Rate 18 br/min 02 Sat Mode of Delivery 96 %/Room air You can now view a summary of your hospital visit from the comfort of your home through a free online portal called [employer]. [employer] is a website that allows you to securely view your medical information including discharge summary, medications and follow-up visits. ??You can alsosend a secure electronic message to your doctor???s office to request appointments, renew medications or just ask a question. You can enroll at [email or web address] or register during your next office visit. Disclaimer:?? The information provided is of a general nature and is intended to be used in conjunction with the recommendations and advice of your health care practitioner. ??Every effort has been made to ensure that the information provided is accurate and complete at the time it is provided to you however, as your needs change, or, as new ??information becomes available, different or additional instructions may be required. If you have questions, please consult with your primary care provider or pharmacist, as appropriate. ??This information is not intended to serve as substitution for assessment and evaluation by a qualified health care provider. If you do not have a primary care provider, you may find a [facility] provider by calling [facility] Link at [phone]. For information about the plan of care including goals and instructions for your diagnosis, please see the patient education orders section of this document. Patient Education Materials?? The content of this educational material or handout may have been modified, supplemented, or adapted from its original content and format to support your individualized medical care. Patient Care team information Care Team Personnel Name: Luanne Mi NP Position: [facility] Associate Professional Member Role: PCP Address: Address: [address] [place] [id number] Care Team Related Persons Name: ERICA MCGINNIS Address: home [address] [place] [address] Name: MYLES MCGINNIS Address: Silvia PAYNE Address: home [address] [place] [address]
--- OUTSIDE RECORDS SUMMARY | 2023-12-13 00:18 | XMS_ITS | Continuity of Care Document ---
[facility] Address [address] [address]- Care Team Providers Care Water Plant Pump Operator Supervisor Name Role Phone Julian Dueñas MD Primary Care Physician [phone] Encounter [facility] Date(s): 09/18/21 - 01/16/22 [facility] [address] [address] Attending Physician: Odessa Koo CNM Admitting Physician: Odessa Koo CNM Referring Physician: Bess Norton CNM Allergies, Adverse Reactions, Alerts Substance Reaction Severity [...] Refills, Soft Stop, 12/27/21 15:15:00 EDT, Tablet, [facility] #[id number], Partial fill upon patient request if the prescription is for a scheduleII opioid drug., 152, cm, 12/27/21 13:37:00 EDT, [facility] Start Date: 12/27/21 Status: Ordered ferrous sulfate 325 mg oral enteric coated tablet 325 mg, 1, tablet, By Mouth, Daily, # 30 tablet, Refills 3, Tot. Refills 3, Maintenance, 10/02/21 18:32:00 EDT, Route to Pharmacy Electronically, [facility] #[id number], Partial fill upon patient request if the prescription is for a schedule II o... Start Date: 10/02/21 Status: Ordered Multivitamins with FA 0.8 mg oral tablet 1 tablet = 0.8 mg, By Mouth, Daily, # 30 tablet, 5 Refills, Maintenance, 11/05/21 18:50:00 EDT, Tablet, [facility][id number], Partial fill upon patient request if the [...] Sex Patient Care team information Personnel Name: Julian Dueñas MD Address: Address: [address] [place] [id number]
--- OUTSIDE RECORDS SUMMARY | 2023-12-13 00:18 | XMS_ITS | Continuity of Care Document ---
[facility] Address [address] [address]- Care Team Providers Care Multi Township Assessor Name Role Phone Spenser DAY, Julian Primary Care Physician Encounter [facility] Date(s): 09/11/21 - 01/09/22 [facility] [address] [address]- Attending Physician: Not on Staff, Attending MD Admitting Physician: Kelly Bowling MD Referring Physician: Errol ORELLANA, Bess Mahan Allergies, Adverse Reactions, Alerts Substance Reaction Severity [...] Refills, Soft Stop, 12/27/21 15:15:00 EDT, Tablet, [facility] #[id number], Partial fill upon patient request if the prescription is for a scheduleII opioid drug., 152, cm, 12/27/21 13:37:00 EDT, [facility] Start Date: 12/27/21 Status: Ordered ferrous sulfate 325 mg oral enteric coated tablet 325 mg, 1, tablet, By Mouth, Daily, # 30 tablet, Refills 3, Tot. Refills 3, Maintenance, 10/02/21 18:32:00 EDT, Route to Pharmacy Electronically, [facility][id number], Partial fill upon patient request if the prescription is for a schedule II o... Start Date: 10/02/21 Status: Ordered Multivitamins with FA 0.8 mg oral tablet 1 tablet = 0.8 mg, By Mouth, Daily, # 30 tablet, 5 Refills, Maintenance, 11/05/21 18:50:00 EDT, Tablet, [facility][id number], Partial fill upon patient request if the [...] Team Personnel Name: Julian Dueñas MD Address: [address] [place] [address] [address]
--- OUTSIDE RECORDS SUMMARY | 2023-12-13 00:18 | XMS_ITS | Continuity of Care Document ---
Author Organization [facility] Address [address] [place] [address]- Care Team Providers Care Funeral Workers Name Role Phone Not on Staff, PCP Primary Care Physician Unavail able [facility] Date[facility]s): 02[facility]13/22 - 03/15/22 [facility] [address] [place], [place] [address] Attending Physician: Franklyn Chavez Admitting Physician: Franklyn Chavez Referring Physician: AdmtrFranklyn Allergies, Adverse Reactions, Alerts [...] Refills, Soft Stop, 12/27/21 15:15:00 EDT, Tablet, [email or web address] #[id number], Partial fill upon patient request if the prescription is for a scheduleII opioid drug., 152, cm, 12/27/21 13:37:00 EDT, .. Start Date: 12/27/21 Status: Ordered ferrous sulfate 325 mg oral enteric coated tablet 325 mg, 1, tablet, By Mouth, Daily, # 30 tablet, Refills 3, Tot. Refills 3, Maintenance, 10/02/21 18:32:00 EDT, Route to Pharmacy Electronically, [email or web address] #[id number], Partial fill upon patient request if the prescription is for a schedule II o... Start Date: 10/02/21 Status: Ordered Multivitamins with FA 0.8 mg oral tablet 1 tablet = 0.8 mg, By Mouth, Daily, # 30 tablet, 5 Refills, Maintenance, 11/05/21 18:50:00 EDT, Tablet, [email or web address] #[id number], Partial fill upon patient request if the [...] Care team information Care Team Personnel Name: Not on Staff, PCP Position: S Physician (General Medicine) Member Role: PCP Care Team Related Persons Name: ERICA MCGINNIS Address: [address] [place] [address] Name: MYLES MCGINNIS Address: [employer] Address: home [address] [place] [address]
--- OUTSIDE RECORDS SUMMARY | 2023-12-13 00:18 | XMS_ITS | Continuity of Care Document ---
Author Organization [facility] Address [address] [place] [address]- Care Team Providers Care Professor Of Physical Education Name Role Phone Hiowt ESPINO, Luanne Primary Care Physician [phone] [facility] - 07/02/22 [facility] [address] [place] [id number] Allergies, Adverse Reactions, Alerts Substance [...] 1 Refills, Maintenance, 06/16/22 16:39:00 EST, [id number], Partial fill upon patient request if the [...] Refills, Soft Stop, 12/27/21 15:15:00 EDT, Tablet, [facility][id number], Partial fill upon patient request if the prescription is for a scheduleII opioid drug., 152, cm, 12/27/21 13:37:00 EDT, He... Start Date: 12/27/21 Status: Ordered ferrous sulfate 325 mg oral enteric coated tablet 325 mg, 1, tablet, By Mouth, Daily, # 30 tablet, Refills 3, Tot. Refills 3, Maintenance, 10/02/21 18:32:00 EDT, Route to Pharmacy Electronically, [facility][id number], Partial fill upon patient request if the prescription is for a schedule II o... Start Date: 10/02/21 Status: Ordered Multivitamins with FA 0.8 mg oral tablet 1 tablet = 0.8 mg, By Mouth, Daily, # 30 tablet, 5 Refills, Maintenance, 11/05/21 18:50:00 EDT, Tablet, [facility] #[id number], Partial fill upon patient request if the [...] Associate Professional Member Role: PCP Address: Address: [address] [place] [address]- Care Team Related Persons Name: ERICA MCGINNIS Address: [address] [place] [address] Name: MYLES MCGINNIS Address: [place] Address: home [address] [place] [address] [place]
--- OUTSIDE RECORDS SUMMARY | 2023-12-13 00:18 | XMS_ITS | Continuity of Care Document ---
Author Organization [facility] Address [address] [place] [address]- Care Team Providers Care Cash Reconciliation Specialist Name Role Phone Hiwot ESPINO, Luanne Primary Care Physician Encounter [facility] Date(s): 05/30/22 - 06/29/22 [facility] [address] [place] [id number] Allergies, Adverse Reactions, Alerts Substance Reaction [...] 1 Refills, Maintenance, 06/16/22 16:39:00 EST, [id number], Partial fill upon patient request if the [...] Refills, Soft Stop, 12/27/21 15:15:00 EDT, Tablet, [facility][id number], Partial fill upon patient request if the prescription is for a scheduleII opioid drug., 152, cm, 12/27/21 13:37:00 EDT, He... Start Date: 12/27/21 Status: Ordered ferrous sulfate 325 mg oral enteric coated tablet 325 mg, 1, tablet, By Mouth, Daily, # 30 tablet, Refills 3, Tot. Refills 3, Maintenance, 10/02/21 18:32:00 EDT, Route to Pharmacy Electronically, [facility][id number], Partial fill upon patient request if the prescription is for a schedule II o... Start Date: 10/02/21 Status: Ordered Multivitamins with FA 0.8 mg oral tablet 1 tablet = 0.8 mg, By Mouth, Daily, # 30 tablet, 5 Refills, Maintenance, 11/05/21 18:50:00 EDT, Tablet, [facility] #[id number], Partial fill upon patient request if the [...] Associate Professional Member Role: PCP Address: Address: [address] [place] [address]- Care Team Related Persons Name: ERICA MCGINNIS Address: [address] [place] [address] Name: MYLES MCGINNIS Address: [place] Address: [address] [place] [address] [place]
--- OUTSIDE RECORDS SUMMARY | 2023-12-13 00:18 | XMS_ITS | Continuity of Care Document ---
Author Organization [facility] Address [address] [address]- Care Team Providers Care Commercial Collections Specialist Name Role Phone Spenser DAY, Julian Primary Care Physician [phone] [facility] Date[facility]): 12/04/21 - 01/03/22 [facility] and [facility] [address] [place] [address] Allergies, Adverse Reactions, Alerts Substance [...] Refills, Soft Stop, 12/27/21 15:15:00 EDT, Tablet, [facility] #[id number], Partial fill upon patient request if the prescription is for a scheduleII opioid drug., 152, cm, 12/27/21 13:37:00 EDT, He... Start Date: 12/27/21 Status: Ordered ferrous sulfate 325 mg oral enteric coated tablet 325 mg, 1, tablet, By Mouth, Daily, # 30 tablet, Refills 3, Tot. Refills 3, Maintenance, 10/02/21 18:32:00 EDT, Route to Pharmacy Electronically, [facility] #[id number], Partial fill upon patient request if the prescription is for a schedule II o... Start Date: 10/02/21 Status: Ordered Multivitamins with FA 0.8 mg oral tablet 1 tablet = 0.8 mg, By Mouth, Daily, # 30 tablet, 5 Refills, Maintenance, 11/05/21 18:50:00 EDT, Tablet, [facility] #[id number], Partial fill upon patient request if the [...] Team Personnel Name: Julian Dueñas MD Address: [address] [place] [id number]
--- OUTSIDE RECORDS SUMMARY | 2023-12-13 00:18 | XMS_ITS | Continuity of Care Document ---
Author Organization [facility] ter Address [address] [place] [address]- Care Team Providers Care Field Staff Name Role Phone Not on Staff, PCP Primary Care Physician Unavail able [facility] [facility] [place] 12/01/21 - 12/01/[address] [id number] Discharge Disposition: A-D/C Home Attending Physician: Nini Parker MD Admitting Physician: Nini Parker MD Referring Physician: Nini Parker MD Allergies, Adverse Reactions, Alerts Substance Reaction Severity [...] 08/21/21 17:24:00 EDT, Route to Pharmacy Electronically, [facility] #[id number], Partial fill upon patient request if the pres... Start Date: 08/21/21 Stop Date: 05/18/22 Status: Ordered famotidine 20 mg oral tablet 20 mg, 1, tablet, By Mouth, Daily at bedtime, # 30 tablet, Refills 4, Tot. Refills 4, Maintenance, 08/21/21 17:24:00 EDT, Route to Pharmacy Electronically, [facility][id number], Partial fill upon patient request if the prescription is for a sammi... Start Date: 08/21/21 Stop Date: 01/18/22 Status: Ordered ferrous sulfate 325 mg oral enteric coated tablet 325 mg, 1, tablet, By Mouth, Daily, # 30 tablet, Refills 3, Tot. Refills 3, Maintenance, 10/02/21 18:32:00 EDT, Route to Pharmacy Electronically, [facility] #[id number], Partial fill upon patient request if the prescription is for a schedule II o... Start Date: 10/02/21 Status: Ordered Multivitamins with FA 0.8 mg oral tablet 1 tablet = 0.8 mg, By Mouth, Daily, # 30 tablet, 5 Refills, Maintenance, 11/05/21 18:50:00 EDT, Tablet, [facility][id number], Partial fill upon patient request if the prescription is for a schedule II opioid drug., 1 tablet By Mouth Daily, 152,... Start Date: 11/05/21 Status: Ordered Problem List Condition Effective Dates Status Health Status Inform ant BMI 33.0-33.9,adult(Confirmed) Active COVID-19 virus infection(Confirmed) 04/2021 Active Cervicitis(Confirmed) Active Anxiety and depression(Confirmed) Active Obese class II(Confirmed) Active Vital Signs Most recent to oldest [Reference Range]: 1 2 3 Weight 86.5 kg (12/01/21 4:19 PM) Oxygen Saturation [94-100 %] 98 % (12/01/21 4:29 PM) Blood Pressure [90-138/55-84 mm Hg] 117/72mm Hg (12/01/21 5:31 PM) 123/74mm Hg (12/01/21 5:02 PM) 122/78mm Hg (12/01/21 4:53 PM) Respiratory Rate [16-30 br/min] 18 br/min (12/01/21 4:29 PM) Temperature [96.8-100.4 DegF] 98.2 DegF (12/01/21 4:19 PM) Mode of Delivery (Oxygen) Room air (12/01/21 4:29 PM) Blood pressure sites Arm, left (12/01/21 4:29 PM) Temperature Route Oral (12/01/21 4:19 PM) Dry Weight 86.5 kg (12/01/21 4:19 PM) Social History Social History Type Response Smoking Status Never (less than 100 in lifetime) entered on: 08/06/21 Sex
--- OUTSIDE RECORDS SUMMARY | 2023-12-13 00:18 | XMS_ITS | Continuity of Care Document ---
Author Organization [facility] Address Unknown Care Team Providers Care Rubber Flap Cutter Name Role Phone Not on Staff, PCP Primary Care Physician Unavail able [facility]): [facility]26[facility]21 - [facility] Allergies, Adverse Reactions, Alerts Substance Reaction Severity [...] 08/21/21 17:24:00 EDT, Route to Pharmacy Electronically, [facility] #[id number], Partial fill upon patient request if the pres... Start Date: 08/21/21 Stop Date: 05/18/22 Status: Ordered famotidine 20 mg oral tablet 20 mg, 1, tablet, By Mouth, Daily at bedtime, # 30 tablet, Refills 4, Tot. Refills 4, Maintenance, 08/21/21 17:24:00 EDT, Route to Pharmacy Electronically, [facility] #[id number], Partial fill upon patient request if the prescription is for a sammi... Start Date: 08/21/21 Stop Date: 01/18/22 Status: Ordered ferrous sulfate 325 mg oral enteric coated tablet 325 mg, 1, tablet, By Mouth, Daily, # 30 tablet, Refills 3, Tot. Refills 3, Maintenance, 10/02/21 18:32:00 EDT, Route to Pharmacy Electronically, [facility] #[id number], Partial fill upon patient request if the [...]
--- OUTSIDE RECORDS SUMMARY | 2023-12-13 00:18 | XMS_ITS | Continuity of Care Document ---
Author Organization [facility] ter Address [address] [place] [address]- Care Team Providers Care Fleet Operations Manager Name Role Phone Not on Staff, PCP Primary Care Physician Unavail able En[facility] Date(s): 11/08/21 - 11/09/[address] [address] Discharge Disposition: A-D/C Home Attending Physician: Aniket Looney MD Admitting Physician: Aniket Looney MD Referring Physician: Aniket Looney MD Allergies, Adverse Reactions, Alerts Substance Reaction [...] 08/21/21 17:24:00 EDT, Route to Pharmacy Electronically, [facility] #[id number], Partial fill upon patient request if the pres... Start Date: 08/21/21 Stop Date: 05/18/22 Status: Ordered famotidine 20 mg oral tablet 20 mg, 1, tablet, By Mouth, Daily at bedtime, # 30 tablet, Refills 4, Tot. Refills 4, Maintenance, 08/21/21 17:24:00 EDT, Route to Pharmacy Electronically, [facility] #[id number], Partial fill upon patient request if the prescription is for a sammi... Start Date: 08/21/21 Stop Date: 01/18/22 Status: Ordered ferrous sulfate 325 mg oral enteric coated tablet 325 mg, 1, tablet, By Mouth, Daily, # 30 tablet, Refills 3, Tot. Refills 3, Maintenance, 10/02/21 18:32:00 EDT, Route to Pharmacy Electronically, [facility] #[id number], Partial fill upon patient request if the prescription is for a schedule II o... Start Date: 10/02/21 Status: Ordered Multivitamins with FA 0.8 mg oral tablet 1 tablet = 0.8 mg, By Mouth, Daily, # 30 tablet, 5 Refills, Maintenance, 11/05/21 18:50:00 EDT, Tablet, [facility] #[id number], Partial fill upon patient request if the [...] recent to oldest [Reference Range]: 1 2 Weight 83.5 kg (11/08/21 9:37 PM) Blood Pressure [90-138/55-84 mm Hg] 99/6 6mm Hg (11/08/21 9:54 PM) Respiratory Rate [16-30 br/min] 18 br/mi n (11/08/21 9:49 PM) Temperature [96.8-100.4 DegF] 98.1 DegF (11/08/21 9:37 PM) Mode of Delivery (Oxygen) Room air (11/08/21 9:49 PM) Blood pressure sites Arm, right (11/08/21 9:49 PM) Temperature Route Oral (11/08/21 9:49 PM) Oral (11/08/21 9:37 PM) Dry Weight 83.5 kg (11/08/21 9:37 PM) Weight Obtained Via Standing scale (11/08/21 9:37 PM) Dry Weight Obtained Via Standing scale (11/08/21 9:37 PM) Social History Social History Type Response Smoking Status Never (less than 100 in lifetime) entered on: 08/06/21 Sex
--- OUTSIDE RECORDS SUMMARY | 2023-12-13 00:18 | XMS_ITS | Continuity of Care Document ---
Author Organization [facility] Address [address] [place] [address]- Care Team Providers Care Lead Ios Developer Name Role Phone Hiwot ESPINO, Luanne Primary Care Physician [place] [facility] [place]s): 10/10/22 - 11/09/22 [facility] [address] [place], [place] [address] Allergies, Adverse Reactions, Alerts Substance Reaction Severity [...] 0 Refills, Maintenance, 10/13/22 17:14:00 EDT, [id number], Partial fill upon patient request if the [...] Refills, Soft Stop, 12/27/21 15:15:00 EDT, Tablet, [facility] #[id number], Partial fill upon patient request if the prescription is for a scheduleII opioid drug., 152, cm, 12/27/21 13:37:00 EDT, He... Start Date: 12/27/21 Status: Ordered ferrous sulfate 325 mg oral enteric coated tablet 325 mg, 1, tablet, By Mouth, Daily, # 30 tablet, Refills 3, Tot. Refills 3, Maintenance, 10/02/21 18:32:00 EDT, Route to Pharmacy Electronically, [facility] #[id number], Partial fill upon patient request if the prescription is for a schedule II o... Start Date: 10/02/21 Status: Ordered Multivitamins with FA 0.8 mg oral tablet 1 tablet = 0.8 mg, By Mouth, Daily, # 30 tablet, 5 Refills, Maintenance, 11/05/21 18:50:00 EDT, Tablet, [facility] #[id number], Partial fill upon patient request if the [...] Associate Professional Member Role: PCP Address: Address: [address] Care Team Related Persons Name: ERICA MCGINNIS Address: [address] [place] [address] Name: MYLES MCGINNIS Address: [employer] Address: [address]
--- OUTSIDE RECORDS SUMMARY | 2023-12-13 00:18 | XMS_ITS | Continuity of Care Document ---
Author Organization [facility] Address [address] [place] [address]- Care Team Providers Care Retail Sales Assistant Name Role Phone Not on Staff, PCP Primary Care Physician Unavail able [place] [facility] [place] 08/[place] [facility] [address] [address] Attending Physician: Not on Staff, Attending MD Allergies, Adverse Reactions, Alerts Substance Reaction [...] 08/21/21 17:24:00 EDT, Route to Pharmacy Electronically, [facility] #[id number], Partial fill upon patient request if the pres... Start Date: 08/21/21 Stop Date: 05/18/22 Status: Ordered famotidine 20 mg oral tablet 20 mg, 1, tablet, By Mouth, Daily at bedtime, # 30 tablet, Refills 4, Tot. Refills 4, Maintenance, 08/21/21 17:24:00 EDT, Route to Pharmacy Electronically, [facility] #[id number], Partial fill upon patient request if the [...]
--- OUTSIDE RECORDS SUMMARY | 2023-12-13 00:18 | XMS_ITS | Continuity of Care Document ---
Author Organization [facility] ter Address [address] [place] [address]- Care Team Providers Care Welt Edge Rounder Name Role Phone Not on Staff, PCP Primary Care Physician Unavail able [facility] Date(s): 12/04/21 - 12/07/[address] [address] Discharge Disposition: A-D/C Home Attending Physician: Fox Rosario MD Admitting Physician: Fox Rosario MD Referring Physician: Fox Rosario MD Allergies, Adverse Reactions, Alerts Substance Reaction [...] Measles/Mumps/Rubella Virus Vaccine 02/19/92 Recor ded Medications acetaminophen 325 mg oral tablet 650 mg, By Mouth, Every 4 hours, PRN, not to exceed 4000 mg/day, # 50 tablet, Refills 1, Tot. Refills 1, Maintenance, Pain , Mild, 12/07/21 14:32:00 EDT, Route to Pharmacy Electronically, [facility] #[id number], Partial fill upon patient request... Start Date: 12/07/21 Status: Ordered aspirin 81 mg oral tablet, chewable 162 mg, 2, tablet, Chew, Daily, continue until 2 weeks , # 60 tablet, Refills 8, Tot. Refills 8, Maintenance, 08/21/21 17:24:00 EDT, Route to Pharmacy Electronically, [facility] #[id number], Partial fill upon patient request if the pres... Start Date: 08/21/21 Stop Date: 05/18/22 Status: Ordered docusate sodium 100 mg oral capsule 100 mg, 1, capsule, By Mouth, 2 times a day, PRN, # 60 capsule, Refills 0, Tot. Refills 0, Maintenance, Constipation, 12/07/21 14:32:00 EDT, Route to Pharmacy Electronically, [facility] #[id number], Partial fill upon patient request if the prescr... Start Date: 12/07/21 Status: Ordered famotidine 20 mg oral tablet 20 mg, 1, tablet, By Mouth, Daily at bedtime, # 30 tablet, Refills 4, Tot. Refills 4, Maintenance, 08/21/21 17:24:00 EDT, Route to Pharmacy Electronically, [facility] #[id number], Partial fill upon patient request if the prescription is for a sammi... Start Date: 08/21/21 Stop Date: 01/18/22 Status: Ordered ferrous sulfate 325 mg oral enteric coated tablet 325 mg, 1, tablet, By Mouth, Daily, # 30 tablet, Refills 3, Tot. Refills 3, Maintenance, 10/02/21 18:32:00 EDT, Route to Pharmacy Electronically, [facility] #[id number], Partial fill upon patient request if the prescription is for a schedule II o... Start Date: 10/02/21 Status: Ordered ibuprofen 800 mg oral tablet 800 mg, 1, tablet, By Mouth, Every 8 hours, PRN, not to exceed 3200 mg/day with food or milk, # 60 tablet, Refills 1, Tot. Refills 1, Maintenance, Pain , Moderate, 12/07/21 14:32:00 EDT, Route to Pharmacy Electronically, [facility] #[id number],... Start Date: 12/07/21 Status: Ordered Paxlovid 150 mg-100 mg oral tablet See Instructions, 300mg nirmatrelvir (two 150mg tablets) with 100mg ritonavir (one tablet). All 3 tablets taken together twice daily for 5 days, with or without food, # 30 tablet, 0 Refills, Maintenance, 12/04/21 13:35:00 EDT, [facility] Start Date: 12/04/21 Status: Ordered Multivitamins with FA 0.8 mg oral tablet 1 tablet = 0.8 mg, By Mouth, Daily, # 30 tablet, 5 Refills, Maintenance, 11/05/21 18:50:00 EDT, Tablet, [facility] #[id number], Partial fill upon patient request if the [...] to oldest [Reference Range]: 1 2 3 Height 152 cm (12/07/21 8:12 AM) 152 cm (12/07/21 12:00 AM) 152 cm (12/06/21 2:24 PM) Weight 86.5 kg (12/05/21 1:21 AM) 86.5 kg (12/05/21 1:20 AM) Oxygen Saturation [94-100 %] 97 % (12/07/21 8:12 AM) 100 % (12/07/21 12:00 AM) 98 % (12/06/21 2:24 PM) Pulse Rate [55-90 bpm] 75 bpm (12/07/21 8:12 AM) 78 bpm (12/07/21 12:00 AM) 118 bpm *H* (12/06/21 2:24 PM) Body Mass Index [18.5-24.99] 37.44 *>HHI* (12/05/21 1:21 AM) Blood Pressure [90-138/55-84 mm Hg] 125/73mm Hg (12/07/21 8:12 AM) 123/65mm Hg (12/07/21 12:00 AM) 103/58mm Hg (12/06/21 2:24 PM) Respiratory Rate [16-30 br/min] 18 br/min (12/07/21 8:12 AM) 18 br/min (12/07/21 12:00 AM) 18 br/min (12/06/21 2:24 PM) Temperature [96.8-100.4 DegF] 98.3 DegF (12/07/21 8:12 AM) 98.1 DegF (12/07/21 12:00 AM) 98.0 DegF (12/06/21 2:24 PM) Mode of Delivery (Oxygen) Room air (12/07/21 8:12 AM) Room air (12/07/21 12:00 AM) Room air (12/06/21 2:24 PM) Blood pressure sites Arm, right (12/06/21 2:24 PM) Arm, right (12/06/21 9:17 AM) Arm, left (12/05/21 1:21 AM) Temperature Route Oral (12/07/21 8:12 AM) Oral (12/07/21 12:00 AM) Oral (12/06/21 2:24 PM) Dry Weight 86.5 kg (12/05/21 1:21 AM) Weight Obtained Via Standing scale (12/05/21 1:20 AM) Social History Social History Type Response Smoking Status Never (less than 100 in lifetime) entered on: 08/06/21 Sex
--- OUTSIDE RECORDS SUMMARY | 2023-12-13 00:18 | XMS_ITS | Continuity of Care Document ---
Author [facility] Address Unknown Care Team Providers Care Speech Language Pathology Assistant Name Role Phone Not on Staff, PCP Primary Care Physician Unavail able [facility] Date[facility]): [facility] Allergies, Adverse Reactions, Alerts Substance Reaction Severity [...] 08/21/21 17:24:00 EDT, Route to Pharmacy Electronically, [facility] #[id number], Partial fill upon patient request if the pres... Start Date: 08/21/21 Stop Date: 05/18/22 Status: Ordered famotidine 20 mg oral tablet 20 mg, 1, tablet, By Mouth, Daily at bedtime, # 30 tablet, Refills 4, Tot. Refills 4, Maintenance, 08/21/21 17:24:00 EDT, Route to Pharmacy Electronically, [facility] #[id number], Partial fill upon patient request if the prescription is for a sammi... Start Date: 08/21/21 Stop Date: 01/18/22 Status: Ordered ferrous sulfate 325 mg oral enteric coated tablet 325 mg, 1, tablet, By Mouth, Daily, # 30 tablet, Refills 3, Tot. Refills 3, Maintenance, 10/02/21 18:32:00 EDT, Route to Pharmacy Electronically, [facility] #[id number], Partial fill upon patient request if the prescription is for a schedule II o... Start Date: 10/02/21 Status: Ordered Multivitamins with FA 0.8 mg oral tablet 1 tablet = 0.8 mg, By Mouth, Daily, # 30 tablet, 5 Refills, Maintenance, 11/05/21 18:50:00 EDT, Tablet, [facility] #[id number], Partial fill upon patient request if the [...]
--- OUTSIDE RECORDS SUMMARY | 2023-12-13 00:18 | XMS_ITS | Continuity of Care Document ---
Author [facility] Address Unknown Care Team Providers Care Ab Initio Etl Developer Name Role Phone Not on Staff, PCP Primary Care Physician Unavail able [facility] Date(s): 09/17[facility]21 - [facility]17[facility] Allergies, Adverse Reactions, Alerts Substance Reaction [...] 08/21/21 17:24:00 EDT, Route to Pharmacy Electronically, [facility] #[id number], Partial fill upon patient request if the pres... Start Date: 08/21/21 Stop Date: 05/18/22 Status: Ordered famotidine 20 mg oral tablet 20 mg, 1, tablet, By Mouth, Daily at bedtime, # 30 tablet, Refills 4, Tot. Refills 4, Maintenance, 08/21/21 17:24:00 EDT, Route to Pharmacy Electronically, [facility] #[id number], Partial fill upon patient request if the prescription is for a sammi... Start Date: 08/21/21 Stop Date: 01/18/22 Status: Ordered ferrous sulfate 325 mg oral enteric coated tablet 325 mg, 1, tablet, By Mouth, Daily, # 30 tablet, Refills 3, Tot. Refills 3, Maintenance, 10/02/21 18:32:00 EDT, Route to Pharmacy Electronically, [facility] #[id number], Partial fill upon patient request if the [...]
--- OUTSIDE RECORDS SUMMARY | 2023-12-13 00:18 | XMS_ITS | Continuity of Care Document ---
Author Organization [facility] Address [address] [place] [address]- Care Team Providers Care Color Control Supervisor Name Role Phone Not on Staff, PCP Primary Care Physician Unavail able Encounter [facility] Date(s): 04/02/22 - 05/02/22 [facility] and [address] [address]- Allergies, Adverse Reactions, Alerts Substance Reaction Severity [...] Refills, Soft Stop, 12/27/21 15:15:00 EDT, Tablet, [facility] #[id number], Partial fill upon patient request if the prescription is for a scheduleII opioid drug., 152, cm, 12/27/21 13:37:00 EDT, He... Start Date: 12/27/21 Status: Ordered ferrous sulfate 325 mg oral enteric coated tablet 325 mg, 1, tablet, By Mouth, Daily, # 30 tablet, Refills 3, Tot. Refills 3, Maintenance, 10/02/21 18:32:00 EDT, Route to Pharmacy Electronically, [facility] #[id number], Partial fill upon patient request if the prescription is for a schedule II o... Start Date: 10/02/21 Status: Ordered Multivitamins with FA 0.8 mg oral tablet 1 tablet = 0.8 mg, By Mouth, Daily, # 30 tablet, 5 Refills, Maintenance, 11/05/21 18:50:00 EDT, Tablet, [facility] #[id number], Partial fill upon patient request if the [...] Persons Name: ERICA MCGINNIS Address: [address] [place] [address] Name: MYLES MCGINNIS Address: [place] Address: [address] [place] [address]
--- OUTSIDE RECORDS SUMMARY | 2023-12-13 00:18 | XMS_ITS | Continuity of Care Document ---
Author Organization [facility] Address [address] [place] [address]- Care Team Providers Care Acid Conditioner Name Role Phone Hiwot ESPINO, Luanne Primary Care Physician Encounter [facility] [place] Date(s): 10/10/22 - 11/09/22 [facility] [address] [place], [place] [address] Allergies, Adverse Reactions, Alerts Substance Reaction [...] 0 Refills, Maintenance, 10/13/22 17:14:00 EDT, [id number], Partial fill upon patient request if the [...] Refills, Soft Stop, 12/27/21 15:15:00 EDT, Tablet, [facility] #[id number], Partial fill upon patient request if the prescription is for a scheduleII opioid drug., 152, cm, 12/27/21 13:37:00 EDT, He... Start Date: 12/27/21 Status: Ordered ferrous sulfate 325 mg oral enteric coated tablet 325 mg, 1, tablet, By Mouth, Daily, # 30 tablet, Refills 3, Tot. Refills 3, Maintenance, 10/02/21 18:32:00 EDT, Route to Pharmacy Electronically, [facility] #[id number], Partial fill upon patient request if the prescription is for a schedule II o... Start Date: 10/02/21 Status: Ordered Multivitamins with FA 0.8 mg oral tablet 1 tablet = 0.8 mg, By Mouth, Daily, # 30 tablet, 5 Refills, Maintenance, 11/05/21 18:50:00 EDT, Tablet, [facility] #[id number], Partial fill upon patient request if the [...] Associate Professional Member Role: PCP Address: Address: [address] Care Team Related Persons Name: ERICA MCGINNIS Address: home [address] [place] [address] Name: MYLES MCGINNIS Address: [employer] Address: [address]
--- OUTSIDE RECORDS SUMMARY | 2023-12-13 00:18 | XMS_ITS | Continuity of Care Document ---
Author Organization [facility] Address Unknown Care Team Providers Care Completions Manager Name Role Phone Not on Staff, PCP Primary Care Physician Unavail able [facility]counter [facility] Date(s): 09/17/21 - 10/17/21 [facility] Allergies, Adverse Reactions, Alerts Substance Reaction [...] 08/21/21 17:24:00 EDT, Route to Pharmacy Electronically, [facility] #[id number], Partial fill upon patient request if the pres... Start Date: 08/21/21 Stop Date: 05/18/22 Status: Ordered famotidine 20 mg oral tablet 20 mg, 1, tablet, By Mouth, Daily at bedtime, # 30 tablet, Refills 4, Tot. Refills 4, Maintenance, 08/21/21 17:24:00 EDT, Route to Pharmacy Electronically, [facility] #[id number], Partial fill upon patient request if the prescription is for a sammi... Start Date: 08/21/21 Stop Date: 01/18/22 Status: Ordered ferrous sulfate 325 mg oral enteric coated tablet 325 mg, 1, tablet, By Mouth, Daily, # 30 tablet, Refills 3, Tot. Refills 3, Maintenance, 10/02/21 18:32:00 EDT, Route to Pharmacy Electronically, [facility] #[id number], Partial fill upon patient request if the [...]
--- OUTSIDE RECORDS SUMMARY | 2023-12-13 00:18 | XMS_ITS | Continuity of Care Document ---
Author Organization [facility] Address [address] [place] [address]- Care Team Providers Care Museum Registrar Name Role Phone Not on Staff, PCP Primary Care Physician Unavail able [place] [facility] [place] - 03/05/22 [facility] [address] [place], [place] [address] Allergies, Adverse Reactions, Alerts Substance Reaction Severity [...] Refills, Soft Stop, 12/27/21 15:15:00 EDT, Tablet, [facility] #[id number], Partial fill upon patient request if the prescription is for a scheduleII opioid drug., 152, cm, 12/27/21 13:37:00 EDT, He... Start Date: 12/27/21 Status: Ordered ferrous sulfate 325 mg oral enteric coated tablet 325 mg, 1, tablet, By Mouth, Daily, # 30 tablet, Refills 3, Tot. Refills 3, Maintenance, 10/02/21 18:32:00 EDT, Route to Pharmacy Electronically, [facility] #[id number], Partial fill upon patient request if the prescription is for a schedule II o... Start Date: 10/02/21 Status: Ordered Multivitamins with FA 0.8 mg oral tablet 1 tablet = 0.8 mg, By Mouth, Daily, # 30 tablet, 5 Refills, Maintenance, 11/05/21 18:50:00 EDT, Tablet, [facility][id number], Partial fill upon patient [...] Persons Name: ERICA MCGINNIS Address: home [address] [place] [address] Name: MYLES MCGINNIS Address: [employer] Address: home [address] [place] [address] [place]
--- OUTSIDE RECORDS SUMMARY | 2023-12-13 00:18 | XMS_ITS | Continuity of Care Document ---
Author Organization [facility] Alfredo Storey Address [address], [address] [place] [address]- Care Team Providers Care Slash Trimmer Name Role Phone Not on Staff, PCP Primary Care Physician Unavail able [place] [facility] [place]s): 09/19/21 - 09/26/21 [facility] [address], [address] Floor [place], [place] [address] Attending Physician: Chelle Raza MD Referring Physician: Casimiro Bhatti CNM Allergies, Adverse Reactions, Alerts Substance Reaction [...] 08/21/21 17:24:00 EDT, Route to Pharmacy Electronically, [facility][id number], Partial fill upon patient request if the pres... Start Date: 08/21/21 Stop Date: 05/18/22 Status: Ordered famotidine 20 mg oral tablet 20 mg, 1, tablet, By Mouth, Daily at bedtime, # 30 tablet, Refills 4, Tot. Refills 4, Maintenance, 08/21/21 17:24:00 EDT, Route to Pharmacy Electronically, [facility] #[id number], Partial fill upon patient request if the [...]
--- OUTSIDE RECORDS SUMMARY | 2023-12-13 00:18 | XMS_ITS | Continuity of Care Document ---
Author Organization [facility] Address [address] [address]- Care Team Providers Care Rejoiner Name Role Phone Julian Dueñas MD Primary Care Physician [phone] Encounter [facility] [place] Date(s): 09/04/21 - 01/02/22 [facility] [address] [address] Attending Physician: Odessa Koo CNM Admitting Physician: [...] Refills, Soft Stop, 12/27/21 15:15:00 EDT, Tablet, [facility] #[id number], Partial fill upon patient request if the prescription is for a scheduleII opioid drug., 152, cm, 12/27/21 13:37:00 EDT, [facility] Start Date: 12/27/21 Status: Ordered ferrous sulfate 325 mg oral enteric coated tablet 325 mg, 1, tablet, By Mouth, Daily, # 30 tablet, Refills 3, Tot. Refills 3, Maintenance, 10/02/21 18:32:00 EDT, Route to Pharmacy Electronically, [facility] #[id number], Partial fill upon patient request if the prescription is for a schedule II o... Start Date: 10/02/21 Status: Ordered Multivitamins with FA 0.8 mg oral tablet 1 tablet = 0.8 mg, By Mouth, Daily, # 30 tablet, 5 Refills, Maintenance, 11/05/21 18:50:00 EDT, [id number], Partial fill upon patient request if the [...] Team Personnel Name: Julian Dueñas MD Address: [address] [place] [id number]
--- OUTSIDE RECORDS SUMMARY | 2023-12-13 00:19 | XMS_ITS | Continuity of Care Document ---
Author Organization [facility] Address [address] [place] [address]- Care Team Providers Care Screw Machine Set Up Operator Name Role Phone Hiwot ESPINO, Luanne Primary Care Physician [id number] Date(s): [facility]/04/22 - 06/11/22 [facility] [address] [place] [address]- Encounter Diagnosis Encounter to establish care with new doctor(Discharge Diagnosis) - 06/04/22 Acne(Discharge Diagnosis) - 06/04/22 H/O seasonal allergies(Discharge Diagnosis) - 06/04/22 Anemia(Discharge Diagnosis) - 06/04/22 Attending Physician: Luanne Mi NP Allergies, Adverse [...] 06/04/22 Status: Ordered clindamycin 1% topical gel 1 [...] Refills, Soft Stop, 12/27/21 15:15:00 EDT, Tablet, [facility] #[id number], Partial fill upon patient request if the prescription is for a scheduleII opioid drug., 152, cm, 12/27/21 13:37:00 EDT, He... Start Date: 12/27/21 Status: Ordered ferrous sulfate 325 mg oral enteric coated tablet 325 mg, 1, tablet, By Mouth, Daily, # 30 tablet, Refills 3, Tot. Refills 3, Maintenance, 10/02/21 18:32:00 EDT, Route to Pharmacy Electronically, [facility] #[id number], Partial fill upon patient request if the prescription is for a schedule II o... Start Date: 10/02/21 Status: Ordered Multivitamins with FA 0.8 mg oral tablet 1 tablet = 0.8 mg, By Mouth, Daily, # 30 tablet, 5 Refills, Maintenance, 11/05/21 18:50:00 EDT, Tablet, [facility] #[id number], Partial fill upon patient request if the [...] Dates Health Status Cl inical Service Informant Encounter to establish care with new doctor Discharge Diagnosis 06/04/22 Acne Discharge Diagnosis 06/04/22 H/O seasonal allergies Discharge Diagnosis 06/04/22 Anemia Discharge Diagnosis 06/04/22 Social History Social History Type Response Smoking Status Never (less than 100 in lifetime) entered on: 08/06/21 Sex Patient Care team information Care Team Personnel Name: Luanne Mi NP Position: [facility] PCO Associate Professional Member Role: PCP Address: Address: [address] [place] [address]- Care Team Related Persons Name: ERICA MCGINNIS Address: home [address] [place] [address] Name: MYLES MCGINNIS Address: [employer] Address: [address] [address] [place]
--- OUTSIDE RECORDS SUMMARY | 2023-12-13 00:19 | XMS_ITS | Continuity of Care Document ---
Author Organization [facility] Address [address] [place] [address]- Care Team Providers Care Numerical Control Router Operator Name Role Phone Not on Staff, PCP Primary Care Physician Unavail able Encounter [facility] [place] Date(s): 02/03/22 - 03/15/22 [facility] [address] [place], [place] [address] Attending Physician: Hiwot EARLY CHILDHOOD ASSISTANT, Luanne Allergies, Adverse Reactions, Alerts Substance Reaction Severity [...] Refills, Soft Stop, 12/27/21 15:15:00 EDT, Tablet, [facility] #[id number], Partial fill upon patient request if the prescription is for a scheduleII opioid drug., 152, cm, 12/27/21 13:37:00 EDT, He... Start Date: 12/27/21 Status: Ordered ferrous sulfate 325 mg oral enteric coated tablet 325 mg, 1, tablet, By Mouth, Daily, # 30 tablet, Refills 3, Tot. Refills 3, Maintenance, 10/02/21 18:32:00 EDT, Route to Pharmacy Electronically, [facility] #[id number], Partial fill upon patient request if the prescription is for a schedule II o... Start Date: 10/02/21 Status: Ordered Multivitamins with FA 0.8 mg oral tablet 1 tablet = 0.8 mg, By Mouth, Daily, # 30 tablet, 5 Refills, Maintenance, 11/05/21 18:50:00 EDT, Tablet, [facility][id number], Partial fill upon patient request if the [...] Persons Name: ERICA MCGINNIS Address: home [address] [place] [address] Name: MYLES MCGINNIS Address: [employer] Address: [address]
--- OUTSIDE RECORDS SUMMARY | 2023-12-13 00:19 | XMS_ITS | Continuity of Care Document ---
Author Organization [facility] Address Unknown Care Team Providers Care Cloth Winder Machine Operator Name Role Phone Not on Staff, PCP Primary Care Physician Unavail able [facility] Date(s): 08/09/21 - [facility] Allergies, Adverse Reactions, Alerts Substance Reaction Severity [...] 08/21/21 17:24:00 EDT, Route to Pharmacy Electronically, [facility] #[id number], Partial fill upon patient request if the pres... Start Date: 08/21/21 Stop Date: 05/18/22 Status: Ordered famotidine 20 mg oral tablet 20 mg, 1, tablet, By Mouth, Daily at bedtime, # 30 tablet, Refills 4, Tot. Refills 4, Maintenance, 08/21/21 17:24:00 EDT, Route to Pharmacy Electronically, [facility] #[id number], Partial fill upon patient request if the [...]
--- OUTSIDE RECORDS SUMMARY | 2023-12-13 00:19 | XMS_ITS | Continuity of Care Document ---
Author Organization [facility] Address [address] [place] [address]- Care Team Providers Care Associate Director Regulatory Affairs Name Role Phone Not on Staff, PCP Primary Care Physician Unavail able En[place] [facility] [place] Date(s): 08/06/21 - 08/13/21 [facility] [address] [place] [address]- Attending Physician: Not on Staff, Attending MD Referring Physician: Arline Richmond MD Allergies, Adverse Reactions, Alerts Substance Reaction [...] Recor ded Medications aspirin 81 mg oral delayed release tablet 2 tablet = 162 mg, By Mouth, Daily, # 60 tablet, 6 Refills, Maintenance, 08/06/21 13:47:00 EDT, CR Tablet, Partial fill upon patient request if the prescription is for a schedule II opioid drug. Start Date: 08/06/21 Stop Date: 09/05/21 Status: Ordered Multivitamins with FA 0.8 mg [...] and depression(Confirmed) Active Obese class I(Confirmed) Active Procedures Procedure Date Related Diagnosis Body Site Status Hysteroscopy 2019 Completed Excision of vocal cord nodule 2004 Completed Vital Signs Most recent to oldest [Reference Range]: 1 Height 152 cm (08/06/21 1:08 PM) Weight 78.3 kg (08/06/21 1:08 PM) Body Mass Index [18.5-24.99] 33.89 *>HHI* (08/06/21 1:08 PM) Social History Social History Type Response Smoking Status Never (less than 100 in lifetime) entered on: 08/06/21 Sex
--- OUTSIDE RECORDS SUMMARY | 2023-12-13 00:19 | XMS_ITS | Continuity of Care Document ---
Author Organization [facility] Address [address] [place] [address]- Care Team Providers Care Patient Scheduling Manager Name Role Phone Not on Staff, PCP Primary Care Physician Unavail able [facility] Date(s): 08/21/21 - 09/20/21 [facility] [address] [address] Attending Physician: Not on Staff, Attending MD [...] 08/21/21 17:24:00 EDT, Route to Pharmacy Electronically, [facility] #[id number], Partial fill upon patient request if the pres... Start Date: 08/21/21 Stop Date: 05/18/22 Status: Ordered famotidine 20 mg oral tablet 20 mg, 1, tablet, By Mouth, Daily at bedtime, # 30 tablet, Refills 4, Tot. Refills 4, Maintenance, 08/21/21 17:24:00 EDT, Route to Pharmacy Electronically, [facility] #[id number], Partial fill upon patient request if the [...]
--- OUTSIDE RECORDS SUMMARY | 2023-12-13 00:19 | XMS_ITS | Continuity of Care Document ---
Author Organization [facility] Address [address] [address]- Care Team Providers Care Fly Raiser Lockstitch Name Role Phone Spenser DAY, Julian Primary Care Physician Encounter [facility] Date(s): 12/04/21 - 01/03/22 [facility] [address] [place] [address] Allergies, Adverse Reactions, Alerts Substance Reaction [...] Refills, Soft Stop, 12/27/21 15:15:00 EDT, Tablet, [facility] #[id number], Partial fill upon patient request if the prescription is for a scheduleII opioid drug., 152, cm, 12/27/21 13:37:00 EDT, He... Start Date: 12/27/21 Status: Ordered ferrous sulfate 325 mg oral enteric coated tablet 325 mg, 1, tablet, By Mouth, Daily, # 30 tablet, Refills 3, Tot. Refills 3, Maintenance, 10/02/21 18:32:00 EDT, Route to Pharmacy Electronically, [facility] #[id number], Partial fill upon patient request if the prescription is for a schedule II o... Start Date: 10/02/21 Status: Ordered Multivitamins with FA 0.8 mg oral tablet 1 tablet = 0.8 mg, By Mouth, Daily, # 30 tablet, 5 Refills, Maintenance, 11/05/21 18:50:00 EDT, Tablet, [facility] #[id number], Partial fill upon patient request if the [...] Team Personnel Name: Julian Dueñas MD Address: [address] [place] [address]
--- OUTSIDE RECORDS SUMMARY | 2023-12-13 00:19 | XMS_ITS | Continuity of Care Document ---
Author Organization [facility] Address [address] [place] [address]- Care Team Providers Care Hydraulic Corrugating Machine Operator Name Role Phone Not on Staff, PCP Primary Care Physician Unavail able [place] [facility] [place]06[place] - 09/05/21 [facility] [address] [place], [place] [address] Attending Physician: Franklyn Chavez Admitting Physician: AdmFranklyn newell Referring Physician: Admtr, Ar8 Allergies, Adverse Reactions, [...] 08/21/21 17:24:00 EDT, Route to Pharmacy Electronically, [facility] #[id number], Partial fill upon patient request if the pres... Start Date: 08/21/21 Stop Date: 05/18/22 Status: Ordered famotidine 20 mg oral tablet 20 mg, 1, tablet, By Mouth, Daily at bedtime, # 30 tablet, Refills 4, Tot. Refills 4, Maintenance, 08/21/21 17:24:00 EDT, Route to Pharmacy Electronically, [facility] #[id number], Partial fill upon patient request if the [...]
--- OUTSIDE RECORDS SUMMARY | 2023-12-13 00:19 | XMS_ITS | Continuity of Care Document ---
Author Organization [facility] Address Unknown Care Team Providers Care Pick Up And Delivery Driver Name Role Phone Not on Staff, PCP Primary Care Physician Unavail able [facility]counter [facility] Date(s): 07/18/21 - 08/17/21 [facility] Allergies, Adverse Reactions, Alerts Substance Reaction Severity [...]
--- OUTSIDE RECORDS SUMMARY | 2023-12-13 00:19 | XMS_ITS | Continuity of Care Document ---
Author Organization [facility] Address [address] [place] [address]- Care Team Providers Care Hospitality Coordinator Name Role Phone Hiwot ESPINO, Luanne Primary Care Physician En[facility] [place] Date(s): 08/01/22 - 08/08/22 [facility] [address] [place] [address]- Encounter Diagnosis Physical exam(Discharge Diagnosis) - 08/01/22 Anemia(Discharge Diagnosis) - 08/01/22 Anxiety and depression(Discharge Diagnosis) - 08/01/22 BMI 33.0-33.9,adult(Discharge Diagnosis) - 08/01/22 Attending Physician: Luanne Mi NP Allergies, Adverse [...] Gm, 1 Refills, Maintenance, 06/16/22 16:39:00 EST, [facility] #[id number], Partial fill upon patient request if the [...] Refills, Soft Stop, 12/27/21 15:15:00 EDT, Tablet, [facility] #[id number], Partial fill upon patient request if the prescription is for a scheduleII opioid drug., 152, cm, 12/27/21 13:37:00 EDT, He... Start Date: 12/27/21 Status: Ordered ferrous sulfate 325 mg oral enteric coated tablet 325 mg, 1, tablet, By Mouth, Daily, # 30 tablet, Refills 3, Tot. Refills 3, Maintenance, 10/02/21 18:32:00 EDT, Route to Pharmacy Electronically, [facility] #[id number], Partial fill upon patient request if the prescription is for a schedule II o... Start Date: 10/02/21 Status: Ordered Multivitamins with FA 0.8 mg oral tablet 1 tablet = 0.8 mg, By Mouth, Daily, # 30 tablet, 5 Refills, Maintenance, 11/05/21 18:50:00 EDT, Tablet, [facility] #[id number], Partial fill upon patient request if the [...] Diagnosis Diagnosis Type Effective Dates Health Status Clinical Service Informant Physical exam Discharge Diagnosis 4/14/23 Anemia Discharge Diagnosis 08/01/22 Anxiety and depression Discharge Diagnosis 08/01/22 BMI 33.0-33.9,adult Discharge Diagnosis 08/01/22 Vital Signs Most recent to oldest [Reference Range]: 1 Height 152.9 cm (08/01/22 2:53 PM) Weight 81.4 kg (08/01/22 2:53 PM) Oxygen Saturation [94-100 %] 99 % (08/01/22 2:53 PM) Pulse Rate [55-90 bpm] 71 bpm (08/01/22 2:53 PM) Body Mass Index [18.5-24.99 kg/m2] 34.82 kg/m2 *>HHI* (08/01/22 2:53 PM) Blood Pressure [90-138/55-84 mm Hg] 118/ 68mm Hg (08/01/22 2:53 PM) Respiratory Rate [16-30 br/min] 16 br/mi n (08/01/22 2:53 PM) Temperature [96.8-100.4 DegF] 98.8 DegF (08/01/22 2:53 PM) Mode of Delivery (Oxygen) Room air (08/01/22 2:53 PM) Blood pressure sites Arm, left (08/01/22 2:53 PM) Temperature Route Temporal (08/01/22 2:53 PM) Weight Obtained Via Standing scale (08/01/22 2:53 PM) Social History Social History Type Response Smoking Status Never (less than 100 in lifetime) entered on: 08/06/21 Sex Note * Clara Pack: PERFORM, SIGN, VERIFY Event Display: Patient Education/Instruction Authored Date: [id number] [facility] *[facility] Clinical Summary Name WALESKA MACE Age 31 Years 1990 PCP Hiwot ESPINO, Luanne PCP [facility]# [id number] Visit Date 08/01/2022 14:51:00 Additional Instructions: Scheduled Appointments?? Future Appointments ?No Future Appointments Scheduled Follow-Up Instructions ?? Diagnosis Encounter for general adult medical examination without abnormal findings; Body mass index [BMI] 33.0-33.9, adult; Anemia, unspecified; Anxiety disorder, unspecified Medications: Please continue your medications until [...] Topically Daily in the morning. Next Dose: Clindamycin Topical (clindamycin 1% topical gel) Topically daily in am. Refills: 1. Next Dose: Ferrous Sulfate (ferrous sulfate 325 mg oral enteric coated tablet) 1 tab(s) Oral Daily. Refills: 3. Next Dose: Multivitamin, ( Multivitamins with FA 0.8 mg oral tablet) 1 tab(s) Oral Daily. Refills: 5. Next Dose: ulipristal (Geena 30 mg oral tablet) 1 tab(s) Oral once. Refills: 1. Next Dose: Allergy Info:?? shellfish Medications Given This Visit Future Orders ?HIV Ab-Ag 4th Generation? Order Date:08/01/22?- Complete on or after?08/01/22 ?Chlamydia/N. Gonorrhoeae TMA (NAAT)? Order Date:08/01/22?- Complete on or after?08/01/22 ?Comprehensive Metabolic Panel? Order Date:08/01/22?- Complete on or after?08/01/22 ?Lipid Panel? Order Date:08/01/22?- Complete on or after?08/01/22 ?CBC? Order Date:08/01/22?- Complete on or after?08/01/22 Vital Signs Height 152.9 cm Weight 81.4 kg BMI 34.82 kg/m2 Blood Pressure 118 mm Hg/68 mm Hg Temperature 98.8 DegF Pulse Rate 71 bpm Respiratory Rate 16 br/min 02 Sat Mode of Delivery 99 %/Room air You can now view a summary of your hospital visit from the comfort of your home through a free online portal called [employer]. [employer] is a website that allows you to securely view your medical information including discharge summary, medications and follow-up visits. ??You can alsosend a secure electronic message to your doctor???s office to request appointments, renew medications or just ask a question. You can enroll at [email or web address] or register during your next office visit. [...] primary care provider, you may find a [facility] provider by calling [facility] [employer] Link at [phone]. For information about the plan of care [...] Team Personnel Name: Luanne Mi NP Position: [facility] PCO Associate Professional Member Role: PCP Address: Address: [address] [place] [id number] Care Team Related Persons Name: ERICA MCGINNIS Address: home [address] [place] [address] Name: MYLES MCGINNIS Address: [facility] Address: home [address]
--- OUTSIDE RECORDS SUMMARY | 2023-12-13 00:19 | XMS_ITS | Continuity of Care Document ---
Author Organization [facility] Address Unknown Care Team Providers Care Wearing Apparel Assembler Name Role Phone Not on Staff, PCP Primary Care Physician Unavail able Encounter [facility] Date(s): 07/24/21 - 08/23/21 [facility] Allergies, Adverse Reactions, Alerts Substance Reaction [...] 08/21/21 17:24:00 EDT, Route to Pharmacy Electronically, [facility] #[id number], Partial fill upon patient request if the pres... Start Date: 08/21/21 Stop Date: 05/18/22 Status: Ordered famotidine 20 mg oral tablet 20 mg, 1, tablet, By Mouth, Daily at bedtime, # 30 tablet, Refills 4, Tot. Refills 4, Maintenance, 08/21/21 17:24:00 EDT, Route to Pharmacy Electronically, [facility] #[id number], Partial fill upon patient request if the [...]
--- OUTSIDE RECORDS SUMMARY | 2023-12-13 00:19 | XMS_ITS | Continuity of Care Document ---
Author Organization [facility] Address [address] [address]- Care Team Providers Care Apartment Manager Name Role Phone Julian Dueñas MD Primary Care Physician [phone] Encounter [facility] Date(s): 12/03/21 - 01/12/22 [facility] [address] [id number] Attending Physician: Not on Staff, Attending MD Referring Physician: Odessa Koo CNM Allergies, Adverse Reactions, Alerts Substance Reaction [...] Refills, Soft Stop, 12/27/21 15:15:00 EDT, Tablet, [facility] #[id number], Partial fill upon patient request if the prescription is for a scheduleII opioid drug., 152, cm, 12/27/21 13:37:00 EDT, He... Start Date: 12/27/21 Status: Ordered ferrous sulfate 325 mg oral enteric coated tablet 325 mg, 1, tablet, By Mouth, Daily, # 30 tablet, Refills 3, Tot. Refills 3, Maintenance, 10/02/21 18:32:00 EDT, Route to Pharmacy Electronically, [facility] #[id number], Partial fill upon patient request if the prescription is for a schedule II o... Start Date: 10/02/21 Status: Ordered Multivitamins with FA 0.8 mg oral tablet 1 tablet = 0.8 mg, By Mouth, Daily, # 30 tablet, 5 Refills, Maintenance, 11/05/21 18:50:00 EDT, Tablet, [facility] #[id number], Partial fill upon patient request if the [...] Team Personnel Name: Julian Dueñas MD Address: [address] [place] [id number]
--- OUTSIDE RECORDS SUMMARY | 2023-12-13 00:19 | XMS_ITS | Continuity of Care Document ---
Author Organization [facility] Address Unknown Care Team Providers Care Carrier Packer Name Role Phone Not on Staff, PCP Primary Care Physician Unavail able Encounter [facility] Date(s): 08/29/21 - 09/28/21 [facility] Allergies, Adverse Reactions, Alerts Substance Reaction [...] 08/21/21 17:24:00 EDT, Route to Pharmacy Electronically, [facility] #[id number], Partial fill upon patient request if the pres... Start Date: 08/21/21 Stop Date: 05/18/22 Status: Ordered famotidine 20 mg oral tablet 20 mg, 1, tablet, By Mouth, Daily at bedtime, # 30 tablet, Refills 4, Tot. Refills 4, Maintenance, 08/21/21 17:24:00 EDT, Route to Pharmacy Electronically, [facility] #[id number], Partial fill upon patient request if the [...]
--- OUTSIDE RECORDS SUMMARY | 2023-12-13 00:19 | XMS_ITS | Continuity of Care Document ---
Author Organization [facility] Address [address] [place] [address]- Care Team Providers Care Lost Charge Card Clerk Name Role Phone Not on Staff, PCP Primary Care Physician Unavail able Encounter [facility] Date(s): 10/15/21 - 10/15/[address] [id number] Discharge Disposition: A-D/C Home Attending Physician: Milind DAY [OB], Nicole Uribe Admitting Physician: Milind DAY [OB], Nicole Uribe Referring Physician: Milind DAY [OB], Nicole Uribe Allergies, Adverse Reactions, Alerts Substance Reaction Severity [...] 08/21/21 17:24:00 EDT, Route to Pharmacy Electronically, [facility] #[id number], Partial fill upon patient request if the pres... Start Date: 08/21/21 Stop Date: 05/18/22 Status: Ordered famotidine 20 mg oral tablet 20 mg, 1, tablet, By Mouth, Daily at bedtime, # 30 tablet, Refills 4, Tot. Refills 4, Maintenance, 08/21/21 17:24:00 EDT, Route to Pharmacy Electronically, [facility] #[id number], Partial fill upon patient request if the prescription is for a sammi... Start Date: 08/21/21 Stop Date: 01/18/22 Status: Ordered ferrous sulfate 325 mg oral enteric coated tablet 325 mg, 1, tablet, By Mouth, Daily, # 30 tablet, Refills 3, Tot. Refills 3, Maintenance, 10/02/21 18:32:00 EDT, Route to Pharmacy Electronically, [facility] #[id number], Partial fill upon patient request if the [...]
--- OUTSIDE RECORDS SUMMARY | 2023-12-13 00:19 | XMS_ITS | Continuity of Care Document ---
Author Organization [facility] Address [address] [place] [address]- Care Team Providers Care Back Panel Padder Name Role Phone Not on Staff, PCP Primary Care Physician Unavail able Encounter [facility] Date(s): 08/21/21 - 09/20/[address] [id number] Attending Physician: Franklyn Chavez Admitting Physician: AdmtrFranklyn Referring Physician: AdmtrFranklyn Allergies, Adverse Reactions, Alerts Substance Reaction Severity Status shellfish Hives Active Immunizations Given and Recorded Vaccine Date Status Refusal Reason influenza virus vaccine, inactivated 06/29/18 Ajm rded Human Papillomavirus Vaccine 05/09/11 Recorded Human [...] 08/21/21 17:24:00 EDT, Route to Pharmacy Electronically, [facility] #[id number], Partial fill upon patient request if the pres... Start Date: 08/21/21 Stop Date: 05/18/22 Status: Ordered famotidine 20 mg oral tablet 20 mg, 1, tablet, By Mouth, Daily at bedtime, # 30 tablet, Refills 4, Tot. Refills 4, Maintenance, 08/21/21 17:24:00 EDT, Route to Pharmacy Electronically, [facility] #[id number], Partial fill upon patient request if the [...]
== END 2023-12-11 10:31 | disposition home or self-care (01) ==
PROVIDERS: Visit Provider Nurse Practitioner Family
DX: M25.562 Pain in left knee (principal)
CPT/HCPCS: 99214

== ENCOUNTER 2023-12-11 10:09 | Outpatient (REF) | payer OTHER, SELFPAY ==
--- NOTE | ~2023-12-11 | XR_ITS ---
EXAMINATION: XR KNEE, LEFT CLINICAL INFORMATION: Pain. COMPARISON: None available. TECHNIQUE: Four views of the left knee. FINDINGS: No fracture or joint effusion. Alignment is anatomic. Joint spaces are maintained. No abnormal soft tissue calcification. XR/XR knee LT 4V IMPRESSION: Normal left knee. Electronically signed by: Marsha Delgado MD 12/11/2023 11:00 AM EDT
== END 2023-12-11 10:10 | disposition home or self-care (01) ==
LOC: HO.HMGCX 10:09
PROVIDERS: Visit Provider Nurse Practitioner Family
DX: M25.562 Pain in left knee (principal)
CPT/HCPCS: 73564